=== PATIENT | male | born 1965 | race Caucasian/White ===

== ENCOUNTER 2022-03-20 22:23 | Inpatient (IN) | payer BC, SELFPAY ==
--- NOTE | ~2022-03-20 | XR_ITS ---
XR chest 1V portable DATE: 03/21/2022 13:49 INDICATION: Leukocytopenia TECHNIQUE: Portable AP chest on 03/21/2022 at 1346 hours COMPARISON: None FINDINGS: Normal heart size. No hilar or mediastinal enlargement. Bibasilar infiltrate or atelectasis, left greater than right. No pleural effusion or pulmonary vascul ar congestion or pneumothorax. Osteopenia. Degenerative spurring of the thoracic spine. IMPRESSION: Mild bibasilar infiltrate and/or atelectasis Reviewed, dictated and finalized at location A.
--- NOTE | ~2022-03-20 | XR_ITS ---
XR chest 1V portable DATE: 03/23/2022 10:32 INDICATION: Leukocytopenia. Infiltrate. TECHNIQUE: Portable upright AP chest on 03/23/2022 1027 hours COMPARISON: 03/21/2022 portable AP chest FINDINGS: There are patchy bilateral mid and particularly lower lung infiltrates and/atelectasis. The re is mild elevation of the right diaphragm. Heart size appears within normal range. There is mild pulmonary vascular congestion and redistribution. There is minimal if any pleural effusion. No pneumothorax. IMPRESSION: Bilateral mid and particularly lower lung zone infiltrates and/atelectasis, increased sin ce 03/21/2022 Mild congestive changes Reviewed, dictated and finalized at location A. IMPRESSION: Bilateral mid and particularly lower lung zone infiltrates and/atel ectasis, increased since 03/21/2022 Mild congestive changes
--- NOTE | ~2022-03-20 | CT_ITS ---
EXAMINATION: CT abdomen pelvis wo con DATE: 03/21/2022 10:32 INDICATION: Cirrhosis TECHNIQUE: Computed tomography (CT) of the abdomen and pelvis was performed without intravenous contr ast. Automated exposure control and iterative reconstruction technique were employed. Exam dose: 150 6.71 mGy-cm total exam DLP. COMPARISON: None. FINDINGS: There is minimal discoid atelectasis or scarring primarily involving the anterior basilar s egments of the lower lobes. No infiltrate or consolidation at the lung bases. Normal heart size. No pericardial or pleural effusion. Small sliding hiatal hernia. There is splenomegaly, spleen measuring up to 17 cm length. There is surface nodularity of the liver, consistent with cirrhosis. Varices are noted. Due to Omnipaque shorted, intravenous contrast material was not utilized. Within the limits of noncon trast examination no apparent space-occupying mass lesion of the liver, spleen, pancreas, adrenal gla nds or kidneys is noted. No urinary tract calculus or hydroureteronephrosis. Normal caliber of the abdominal aorta. No abdominal aortic aneurysm. No intraperitoneal or retroperit prince or pelvic mass lesion or adenopathy or ascites. Normal appendix. No bowel obstruction, bowel wall thickening, pneumatosis. Small fat-containing inguinal hernias, left greater than right. Small fat-containing umbilical hernia. Diffuse idiopathic skeletal hyperostosis of the thoracic spine. No suspicious osteolytic or osteoblas tic lesions are noted. IMPRESSION: Cirrhosis, splenomegaly, varices Small sliding hiatal hernia Reviewed, dictated and finalized at Location A. Reviewed, dictated and finalized at location A.
--- NOTE | ~2022-03-20 | US_ITS ---
US abdomen limited DATE: 03/22/2022 08:04 INDICATION: Elevated liver enzymes TECHNIQUE: Real-time imaging of liver, pancreas, gallbladder areas COMPARISON: 03/21/2022 CT abdomen pelvis FINDINGS: Surface nodularity of the liver suggests cirrhosis. No hepatic or pancreatic space-occupyin g mass lesion is evident. Normal hepatopedal portal venous flow direction. No gallstones or gallbladder wall thickening is evident. Negative sonographic Galan's sign. No evide nce of bile duct dilatation. IMPRESSION: Cirrhosis Reviewed, dictated and finalized at Location [facility]. Reviewed, dictated and finalized at location A. IMPRESSION: Cirrhosis
[2022-03-20 22:34] VITALS: BP 113/56; PULSE 107; RESP 18; TEMP 37.2; O2SAT 98
[2022-03-20 23:22] LABS: Basophils Absolute Auto 0.1 K/mm3 (0.0-0.1); Eosinophils Percent Auto 0.6 % (0-4.4); Hematocrit 30.5 % (42.0-52.0); Hemoglobin 9.8 g/dL (14.0-18.0); Immature Granulocyte Absolute 0.02 K/mm3 (0.00-0.031); Immature Granulocyte Percent A 0.3 % (0-0.5); Lymphocytes Absolute Auto 0.96 K/mm3 (0.9-3.2); Lymphocytes Percent Auto 13.8 % (18.3-44.2); Mean Corpuscular HGB Conc 32.1 g/dl (32-36); Mean Corpuscular Hemoglobin 30.3 pg (26-34); Mean Corpuscular Volume 94.4 fl (80-100); Mean Platelet Volume 10.7 fl (7.4-10.4); Monocytes Absolute Auto 0.8 K/mm3 (0.1-0.6); Monocytes Percent Auto 10.8 % (2.6-8.5); Neutrophils Absolute Auto 5.1 K/mm3 (1.3-6.7); Neutrophils Percent Auto 73.5 % (45.5-73.1); Platelet Count Result 196 k/mm3 (150-375); Red Blood Count 3.23 M/mm3 (4.6-6.20); Red Cell Distribution Width 14.8 % (11.5-14.5); White Blood Count 6.9 K/mm3 (4.5-10.0)
[2022-03-20 23:24] LABS: Alanine Aminotransferase 34 U/L (6-50); Albumin Level 3.5 g/dL (3.5-5.1); Alkaline Phosphatase 147 U/L (38-126); Anion Gap 7 mmol/L (8-16); Aspartate Amino Transferase 58 U/L (17-59); Bilirubin,Total 2.8 mg/dL (0.2-1.3); Blood Urea Nitrogen 27 mg/dL (9-20); Calcium 8.4 mg/dL (8.4-10.2); Carbon Dioxide 23 mmol/L (22-30); Chloride 107 mmol/L (98-107); Estimated CRCL calculation 167 ml/min; Estimated Glomerular Filt Rate > 60; Glucose 300 mg/dL (65-110); Potassium 3.7 mmol/L (3.4-5.0); Sodium 137 mmol/L (137-145)
[2022-03-20 23:26] LABS: INR 1.3
[2022-03-20 23:27] LABS: Partial Thromboplastin Time 32.8 SECONDS (22.3-36.8)
[2022-03-20 23:56] VITALS: BP 129/64; PULSE 97
[2022-03-20 23:58] VITALS: BP 105/50; PULSE 105
[2022-03-20 23:59] VITALS: BP 88/45; PULSE 110
[2022-03-21] VITALS (22 sets, daily range): BP systolic 116–161; BP diastolic 46–78; PULSE 90–105; RESP 12–25; TEMP 37–39; O2SAT 93–100; BMI 31.4
[2022-03-21] MEDS: PANTOPRAZOLE SODIUM IV 40 MG VIAL 80 MG IV PUSH (00:03)
[2022-03-21] MEDS: SODIUM CHLORIDE 0.9% IV 1,000 ML 999 ML IV CONT ×2 (00:10→00:43)
--- NOTE | 2022-03-21 00:38 | ED.GIBLEED ---
HPI - GI Bleed General Chief complaint: GI Bleed Stated complaint: vomiting black edward and black tarry stools Time Seen by Provider: 03/20/22 22:58 History of Present Illness HPI Narrative: Patient is a 57-year-old male who presents ER with concerns for GI bleed. Reports he has been vomiting black and having black diarrhea for 3 days. No history of GI bleed. Takes omeprazole 20 mg at home. He reports he takes ibuprofen 600 mg daily for a year for headaches. He is felt progressively more weak and is getting dizzy with going from sitting to standing. No loss of consciousness. He is on no blood thinners. Related Data Allergies Allergy/AdvReac Type Severity Reaction Status Date / Time No Known Allergies Allergy Verified 03/20/22 22:24 Review of Systems Review of Systems: All systems reviewed & are unremarkable except as noted in HPI and below Constitutional: Constitutional: Denies chills, Denies fatigue and Reports weakness Cardiovascular: Cardiovascular: Denies chest pain, Denies rapid heart rate and Denies radiating jaw, neck or arm pain Respiratory: Respiratory: Denies cough and Denies dyspnea Gastrointestinal: Gastrointestinal: Denies abdominal pain, Reports nausea and Reports vomiting Comments: rectal bleeding PMFSH Past Medical History Medical History (Updated 03/21/22 @ 01:19 by Frankie Mitchell MD) Type 2 diabetes mellitus Surgical History Surgical History (Updated 03/21/22 @ 01:16 by Frankie Mitchell MD) No pertinent past surgical history Social History Social History (Updated 03/21/22 @ 01:16 by Frankie Mitchell MD) Smoking status: Never smoker Exam Narrative: GENERAL: Well-appearing, well-nourished, and in no acute distress. HEAD: Normocephalic, atraumatic. EYES: PERRL and EOMI. CHEST: Clear to auscultation. No respiratory distress. HEART: Regular rate and rhythm. Normal peripheral pulses. ABDOMEN: Soft, nontender, nondistended, normal active bowel sounds. Rectal with dark black stool that was is briskly heme positive on guaiac. EXTREMITIES: Normal range of motion. No edema. SKIN: Warm, dry, no rash. NEURO: Alert and oriented x3. PSYCH: Normal mood and affect. Course Course Emergency Course: Admit to hospitalist service. Patient on Protonix drip. Receiving 2 L IV fluid given orthostasis. Dr. Reid with GI consulted and will see in the morning. Keep NPO. Vital Signs Vital signs: Vital Signs Temperature 98.9 F 03/20/22 22:34 Pulse Rate 107 H 03/20/22 22:34 Respiratory Rate 18 03/20/22 22:34 Blood Pressure 113/56 L 03/20/22 22:34 Pulse Oximetry 98 03/20/22 22:34 Oxygen Delivery Room Air 03/20/22 22:34 Temperature 98.9 F 03/20/22 22:34 Pulse Rate 98 03/21/22 00:43 Respiratory Rate 20 03/21/22 00:43 Blood Pressure 144/67 H 03/21/22 00:43 Pulse Oximetry 97 03/21/22 00:43 Oxygen Delivery Room Air 03/20/22 22:34 MDM - GI Bleed Lab Data Result diagrams: 03/20/22 23:08 03/20/22 23:08 Labs: Lab Results 03/20/22 03/20/22 03/20/22 Range/Units 23:08 23:08 23:08 WBC 6.9 (4.5-10.0) K/mm3 RBC 3.23 L (4.6-6.20) M/mm3 Hgb 9.8 L (14.0-18.0) g/dL Hct 30.5 L (42.0-52.0) % MCV 94.4 (80-100) fl MCH 30.3 (26-34) pg MCHC 32.1 (32-36) g/dl RDW 14.8 H (11.5-14.5) % Plt Count 196 (150-375) k/mm3 MPV 10.7 H (7.4-10.4) fl Immature Gran % (Auto) 0.3 (0-0.5) % Neut % (Auto) 73.5 H (45.5-73.1) % Lymph % (Auto) 13.8 L (18.3-44.2) % [place] % (Auto) 10.8 H (2.6-8.5) % Eos % (Auto) 0.6 (0-4.4) % Baso % (Auto) 1.0 (0.2-1.2) % Lymph # (Auto) 0.96 (0.9-3.2) K/mm3 [place] # (Auto) 0.8 H (0.1-0.6) K/mm3 Eos # (Auto) 0.0 (0-0.3) K/mm3 Baso # (Auto) 0.1 (0.0-0.1) K/mm3 Abs Immat Gran (auto) 0.02 (0.00-0.031) K/mm3 Absolute Neuts (auto) 5.1 (1.3-6.7) K/mm3 Absolute Nucleated RBC 0.0 (0.0-0.012) K/mm3 Nuclea
--- NOTE | 2022-03-21 01:22 | PM.IMHP ---
H&P: HPI History of Present Illness Date/Time: 03/21/22 01:22 Chief Complaint: Coffee-ground emesis with melena Narrative: 57-year-old male with past medical history significant for diabetes visiting family in [place] from [place] is presenting with a 2-3 day history of coffee-ground emesis and melena. He denies any history of GI bleeds and does admit to taking omeprazole daily. He also has been taking ibuprofen 600 mg daily for headaches for the last years. Denies chest pain or shortness of breath. He does admit to some nausea with black emesis and tarry stools. Denies abdominal pain. No fevers or chills. States he has been feeling more weak and lightheaded when he tries to stand. Hemoglobin was noted to be 9.8 in the ER, Repeat hemoglobin a few hours later dropped from 9.8 down to 8.3. Kidney function was normal with a GFR greater than 60 and a creatinine of 0.6. He was also noted to have hyperglycemia with a glucose of 300, hyperbilirubinemia with a bilirubin of 2.8. Elevated alk-phos at 1:47 a.m.. No transaminitis noted. GI was consulted. Patient was placed on a Protonix drip with IV fluid along with antiemetics as needed. Review of Systems Review of Systems: Twelve point review of systems was reviewed and is negative except as noted in the HPI [facility] Past Medical History Medical History (Updated 03/21/22 @ 04:46 by Mayra Maddox DO) Type 2 diabetes mellitus Surgical History Surgical History No pertinent past surgical history Family History Family History Father Hypertension Mother Breast cancer Social History Social History Smoking status: Never smoker Second hand tobacco smoke exposure: No Alcohol intake: current Drinks per week: 50 Alcohol use details: 6-7 vodka drinks nightly for 10+ years Substance use: never Substance use type: does not use Gender identity (if verbalized by the patient): Male Spiritual care concerns: No Agree to blood products: Yes Meds Home Medications and Allergies Home Medications Medication Instructions Recorded Confirmed Type escitalopram oxalate 20 mg tablet 20 tablet PO DAILY 03/21/22 03/21/22 History glipizide 2.5 mg tablet, extended 2.5 tablet PO DAILY 03/21/22 03/21/22 History release 24 hr levothyroxine 50 mcg tablet 50 tablet PO DAILY 03/21/22 03/21/22 History omeprazole 20 mg capsule,delayed 20 mg PO DAILY 03/21/22 03/21/22 History release pravastatin 10 mg tablet 10 tablet PO DAILY 03/21/22 03/21/22 History Allergies Allergy/AdvReac Type Severity Reaction Status Date / Time No Known Allergies Allergy Verified 03/20/22 22:24 Vital Signs Vital Signs - 24 hr 03/20/22 22:34 03/20/22 23:56 03/20/22 23:58 Temperature 98.9 F Pulse Rate 107 H 97 105 H Respiratory Rate 18 Blood Pressure 113/56 L 129/64 105/50 L Pulse Oximetry 98 Oxygen Delivery Room Air 03/20/22 23:59 03/21/22 00:43 Temperature Pulse Rate 110 H 98 Respiratory Rate 20 Blood Pressure 88/45 L 144/67 H Pulse Oximetry 97 Oxygen Delivery Exam Narrative: General: Patient resting comfortably in bed, no acute distress HEENT: Atraumatic, normocephalic, mucous membranes moist CV: Regular rate and rhythm, S1, S2, no murmurs rubs or gallops noted Lungs: Clear to auscultation bilaterally, no rales or crackles noted, no wheezes, good air entry Abdomen: Soft, nontender, nondistended Extremities: Normal to inspection, no edema noted Skin: No rashes noted, no lesions or wounds seen Psych: Euthymic, normal affect Neuro: Cranial nerves 2-12 grossly intact, strength 5/5 upper and lower extremities noted H&P: Results Labs Labs: Short CBC 03/20/22 Range/Units 23:08 WBC 6.9 (4.5-10.0) K/mm3 Hgb 9.8 L (14.0-18.0) g/dL Hct 30.5 L (42.0-52.0
[2022-03-21 02:36] LABS: Hematocrit 26.3 % (42.0-52.0); Hemoglobin 8.3 g/dL (14.0-18.0)
--- NOTE | 2022-03-21 02:54 | ADMGEN ---
This patient, Nabeel Elias, was admitted to IMU Room 213-01. Patient/family oriented to hospital policies and general routines including ID bracelet, bed and alarms, visiting hours, pain management, procedures, bathroom and other care routines, personal items, smoking policy, room service/diet, and visiting hours. Information on how to activate the Rapid Response Team has been discussed. Patient/Family are encouraged to report perceived risks to care and to ask questions if they do not understand what they are told or what they should do.
[2022-03-21] MEDS: SODIUM CHLORIDE 0.9% IV 1,000 ML 125 ML IV CONT (04:19)
[2022-03-21] MEDS: METOCLOPRAMIDE HCL INJ 10 MG/2 ML VIAL IV PUSH (06:42)
[2022-03-21 07:54] LABS: Hematocrit 24.8 % (42.0-52.0); Hemoglobin 7.8 g/dL (14.0-18.0)
--- NOTE | 2022-03-21 08:31 | WPDGICN ---
GI Consult Note Consult date/time: 03/21/22 08:31 Reason for consult: Reason for consultation GI bleeding. HPI: Nabeel Elias is a 57 year old male seen in consultation at the request of the hospitalist. The patient was examined the chart was reviewed. Impression: Coffee-ground emesis and melena. Most likely due to underlying peptic ulcer disease. Patient does have a history of reflux disease on omeprazole. Acute blood loss anemia. Alcohol abuse. PMH: HLD, DM, obesity. Recommendation: PPI. Avoid NSAIDs. Transfuse to keep hemoglobin greater than 7/21. H&H every 6 hours. EGD. Thiamine, folic acid, and MVI. Observe for DTs. Alcohol abstention. History: This very pleasant gentleman with the above past medical history presented to the ED with 3 days of melena. He also reported coffee-ground emesis. He denied any fresh hematochezia or fresh hematemesis. He does have a history of indigestion and heartburn and takes omeprazole daily to control his heartburn. He had been taken NSAID once a day for the last several years. The patient denies any dysphagia, odynophagia, constipation, diarrhea, fever, chills, or night sweats. The patient does have some abdominal cramping on and off. He is presently feeling better. Patient has never had an EGD in the past. He has no documented history of peptic ulcer disease in the past. The patient did report hematochezia about 1 year ago. This consisted of bright red blood per rectum. Bleeding ceased at that time. He has had a previous colonoscopy about 5 years ago. The colonoscopy was normal at that time. Patient does admit to drinking 5-7 drinks per day. He has denies any seizures or withdrawal symptoms. Past surgical history: Herniorrhaphy and colonoscopy. Social history: Drinks 5-7 drinks per day. Denies illicit drug use or smoking. Family medical history: Mother bone cancer and father is healthy. No colon cancer or colitis in the family. General: very pleasant patient in no acute distress. HEENT: Head was normocephalic sclerae is clear mouth without masses neck was supple. Heart: Rate rhythm regular without S3 or S4. Lungs: CTA. Abdomen: Soft with no guarding or rigidity. Bowel sounds were active. Neurologic: Cranial nerves 2 through 12 intact. No focal defects. No clonus. Musculoskeletal system: Revealed no joint tenderness or swelling no muscle atrophy. Extremities: Reveal no significant edema. Skin: Warm and dry with normal turgor. Mental status: intact. Patient is alert and oriented. The risks, complications and alternatives to EGD were explained in detail the patient. These include, but are not limited to, hemorrhage, perforation, infection, blood transfusion, surgery, and risks of anesthesia. The patient understands and assumes all risks. All questions were answered with understanding. Review of Systems Review of Systems: Fourteen point review systems unremarkable except for that mentioned above. [facility] Past Medical History Medical History (Updated 03/21/22 @ 08:31 by Mynor Reid DO) Type 2 diabetes mellitus Surgical History Surgical History No pertinent past surgical history Family History Family History Father Hypertension Mother Breast cancer Social History Social History Smoking status: Never smoker Second hand tobacco smoke exposure: No Alcohol intake: current Drinks per week: 50 Alcohol use details: 6-7 vodka drinks nightly for 10+ years Substance use: never Substance use type: does not use Gender identity (if verbalized by the patient): Male Spiritual care concerns: No Agree to blood products: Yes Meds Home Medications and Allergies Home Medications Medication Instructions Recorded Confirmed Type es
--- NOTE | 2022-03-21 08:35 | WPDANESEPPF ---
Anes - Initial Pre Proc Eval Procedure: Operation Date: 03/21/22 09:00 Proposed Procedures p Esophagogastroduodenoscopy/Stent Removal - Mynor TereNini Reid DO Date/Time: 03/21/22 08:35 Surgeon: Mayra Maddox DO Pre Op Diagnosis: upper gi bleed Patient Data Age: 57 Gender: M Height: 1.91 m Weight: 113.9 kg Last Vital Signs Temp 37.2 C 03/21/22 08:00 Pulse 99 03/21/22 08:00 Resp 22 H 03/21/22 08:00 BP 137/60 03/21/22 08:00 Pulse Ox 95 03/21/22 08:00 O2 Del Method Room Air 03/21/22 03:48 Allergies Allergy/AdvReac Type Severity Reaction Status Date / Time No Known Allergies Allergy Verified 03/21/22 08:48 Home Medications Medication Instructions Recorded Confirmed Type escitalopram oxalate 20 mg tablet 20 tablet PO DAILY 03/21/22 03/21/22 History glipizide 2.5 mg tablet, extended 2.5 tablet PO DAILY 03/21/22 03/21/22 History release 24 hr levothyroxine 50 mcg tablet 50 tablet PO DAILY 03/21/22 03/21/22 History omeprazole 20 mg capsule,delayed 20 mg PO DAILY 03/21/22 03/21/22 History release pravastatin 10 mg tablet 10 tablet PO DAILY 03/21/22 03/21/22 History Laboratory Tests 03/20/22 03/20/22 03/20/22 23:08 23:08 23:08 WBC 6.9 K/mm3 K/mm3 (4.5-10.0) RBC 3.23 M/mm3 L M/mm3 (4.6-6.20) Hgb 9.8 g/dL L g/dL (14.0-18.0) Hct 30.5 % L % (42.0-52.0) MCV 94.4 fl fl (80-100) MCH 30.3 pg pg (26-34) MCHC 32.1 g/dl g/dl (32-36) RDW 14.8 % H % (11.5-14.5) Plt Count 196 k/mm3 k/mm3 (150-375) MPV 10.7 fl H fl (7.4-10.4) Immature Gran % (Auto) 0.3 % % (0-0.5) Neut % (Auto) 73.5 % H % (45.5-73.1) Lymph % (Auto) 13.8 % L % (18.3-44.2) [place] % (Auto) 10.8 % H % (2.6-8.5) Eos % (Auto) 0.6 % % (0-4.4) Baso % (Auto) 1.0 % % (0.2-1.2) Lymph # (Auto) 0.96 K/mm3 K/mm3 (0.9-3.2) [place] # (Auto) 0.8 K/mm3 H K/mm3 (0.1-0.6) Eos # (Auto) 0.0 K/mm3 K/mm3 (0-0.3) Baso # (Auto) 0.1 K/mm3 K/mm3 (0.0-0.1) Abs Immat Gran (auto) 0.02 K/mm3 K/mm3 (0.00-0.031) Absolute Neuts (auto) 5.1 K/mm3 K/mm3 (1.3-6.7) Absolute Nucleated RBC 0.0 K/mm3 K/mm3 (0.0-0.012) Nucleated RBC % 0.0 % % (0.0-0.2) PT 16.0 Seconds H Seconds (11.1-14.7) INR 1.3 APTT 32.8 SECONDS SECONDS (22.3-36.8) Sodium 137 mmol/L mmol/L (137-145) Potassium 3.7 mmol/L mmol/L (3.4-5.0) Chloride 107 mmol/L mmol/L (98-107) Carbon Dioxide 23 mmol/L mmol/L (22-30) Anion Gap 7 mmol/L L mmol/L (8-16) BUN 27 mg/dL H mg/dL (9-20) Creatinine 0.60 mg/dL L mg/dL (0.7-1.3) Estim Creat Clear Calc 167 ml/min ml/min Estimated GFR > 60 (59 - ) Glucose 300 mg/dL H mg/dL (65-110) Calcium 8.4 mg/dL mg/dL (8.4-10.2) Total Bilirubin 2.8 mg/dL H mg/dL (0.2-1.3) AST 58 U/L U/L (17-59) ALT 34 U/L U/L (6-50) Alkaline Phosphatase 147 U/L H U/L (38-126) Total Protein 6.0 g/dL L g/dL (6.3-8.2) Albumin 3.5 g/dL g/dL (3.5-5.1) Blood Type Antibody Screen 03/20/22 03/21/22 03/21/22 23:08 02:29 07:28 WBC RBC Hgb 8.3 g/dL L g/dL 7.8 g/dL L g/dL (14.0-18.0) (14.0-18.0) Hct 26.3 % L % 24.8 % L % (42.0-52.0) (42.0-52.0) MCV MCH MCHC RDW Plt Count MPV Immature Gran % (Auto) Neut % (Auto) Lymph % (Auto) [place] % (Auto) Eos % (Auto) Baso % (Auto) Lymph # (Auto) [place] # (Auto) Eos # (Auto) Baso # (Auto)
[2022-03-21 08:50] LABS: Glucose Point of Care 224 mg/dl (65-105)
[2022-03-21] MEDS: LACTATED RINGERS 1,000 ML 150 ML IV CONT (08:50)
--- NOTE | 2022-03-21 10:00 | PM.IMPN ---
Progress Note: A&P Assessment and Plan (1) Esophageal varices determined by endoscopy: Code(s): I85.00 - Esophageal varices without bleeding Status: Acute Assessment and Plan: EGD was performed 5 varices banded GI on board Trend hemoglobin hematocrit See below (2) Acute upper GI bleeding: Code(s): K92.2 - Gastrointestinal hemorrhage, unspecified Status: Acute Assessment and Plan: Complaints of coffee ground emesis and melena H/H trending down, currently 7.8/24.8 GI consulted EGD performed with 5 bandings of varices Octreotide and protonix drip, could probably be changed to protonix 40mg BID Trend H/H Q6hr Transfuse if H/H <7 (3) Acute blood loss anemia: Code(s): D62 - Acute posthemorrhagic anemia Status: Acute Assessment and Plan: H/H trending down currently 7.8/24.8 Secondary to esophageal varices Continue trend H&H Anemia labs ordered Supplement if indicated Adjust therapy as indicated Transfuse if hemoglobin less than 7 (4) Alcohol abuse: Code(s): F10.10 - Alcohol abuse, uncomplicated Status: Acute Assessment and Plan: [facility] protocol Ativan p.r.n. on board Librium scheduled Trend for DTs Adjust therapy as indicated (5) Type 2 diabetes mellitus: Code(s): E11.9 - Type 2 diabetes mellitus without complications Status: Acute Assessment and Plan: Glucose 300 Accu-Cheks Q6H sliding scale insulin Hold oral medications at this time Trend glucose Adjust therapy as indiciated (6) Hyperbilirubinemia: Code(s): E80.6 - Other disorders of bilirubin metabolism Status: Acute Assessment and Plan: Bili 2.8 Continue to trend Probabaly related to GI bleed GI on board Time Spent With Patient Time with patient: 25 - 35 minutes Subjective Date/time seen: 03/21/22 10:00 Interval history: 03/21/22 1000 Patient was lying in bed and just got back to the GI lab. Patient denies any complaints including chest pain, shortness of breath, nausea, vomiting, diarrhea, constipation, weakness or fatigue. Patient did report having episodes of melena this morning. He seems to be doing okay at this time. H/H is continuing to trend down. Vital signs exhibit a fever at this time, blood cultures have been ordered as well. 03/21/22? 01:22 ?57-year-old male with past medical history significant for diabetes visiting family in [place] from [place] is presenting with a 2-3 day history of coffee-ground emesis and melena.? He denies any history of GI bleeds and does admit to taking omeprazole daily.? He also has been taking ibuprofen 600 mg daily for headaches for the last years.? Denies chest pain or shortness of breath.? He does admit to some nausea with black emesis and tarry stools.? Denies abdominal pain.? No fevers or chills.? States he has been feeling more weak and lightheaded when he tries to stand. Hemoglobin was noted to be 9.8 in the ER, ? Repeat hemoglobin a few hours later dropped from 9.8 down to 8.3. ? Kidney function was normal with a GFR greater than 60 and a creatinine of 0.6. ? He was also noted to have hyperglycemia with a glucose of 300, hyperbilirubinemia with a bilirubin of 2.8.? Elevated alk-phos at 1:47 a.m..? No transaminitis noted. ? GI was consulted.? Patient was placed on a Protonix drip with IV fluid along with antiemetics as needed. Review of Systems Review of Systems: All systems reviewed & are unremarkable except as noted in HPI and below Exam Const: General: cooperative, healthy appearing, no acute distress, well developed, alert and awake Nutritional Appearance: well nourished Orientation/consciousness: patient oriented x3 Limitations: no limitations HENMT: Head: normal to inspection Ears: hearing grossly normal bilaterally General nose exam: Normal external nose present Mouth: Yes Normal ora
--- NOTE | 2022-03-21 10:00 | P.PNIM_ITS ---
Progress Note: A&P Assessment and Plan (1) Esophageal varices determined by endoscopy: Code(s): I85.00 - Esophageal varices without bleeding Status: Acute Assessment and Plan: * EGD was performed 5 varices banded * GI on board * Trend hemoglobin hematocrit * See below (2) Acute upper GI bleeding: Code(s): K92.2 - Gastrointestinal hemorrhage, unspecified Status: Acute Assessment and Plan: * Complaints of coffee ground emesis and melena * H/H trending down, currently 7.8/24.8 * GI consulted * EGD performed with 5 bandings of varices * Octreotide and protonix drip, could probably be changed to protonix 40mg BID * Trend H/H Q6hr * Transfuse if H/H <7 (3) Acute blood loss anemia: Code(s): D62 - Acute posthemorrhagic anemia Status: Acute Assessment and Plan: * H/H trending down currently 7.8/24.8 * Secondary to esophageal varices * Continue trend H&H * Anemia labs ordered * Supplement if indicated * Adjust therapy as indicated * Transfuse if hemoglobin less than 7 (4) Alcohol abuse: Code(s): F10.10 - Alcohol abuse, uncomplicated Status: Acute Assessment and Plan: * CIWA protocol * Ativan p.r.n. on board * Librium scheduled * Trend for DTs * Adjust therapy as indicated (5) Type 2 diabetes mellitus: Code(s): E11.9 - Type 2 diabetes mellitus without complications Status: Acute Assessment and Plan: * Glucose 300 * Accu-Cheks Q6H * sliding scale insulin * Hold oral medications at this time * Trend glucose * Adjust therapy as indiciated (6) Hyperbilirubinemia: Code(s): E80.6 - Other disorders of bilirubin metabolism Status: Acute Assessment and Plan: * Bili 2.8 * Continue to trend * Probabaly related to GI bleed * GI on board Time Spent With Patient Time with patient: 25 - 35 minutes Subjective Date/time seen: 03/21/22 10:00 Interval history: 03/21/22 1000 Patient was lying in bed and just got back to the GI lab. Patient denies any complaints including chest pain, shortness of breath, nausea, vomiting, diarrhea, constipation, weakness or fatigue. Patient did report having episodes of melena this morning. He seems to be doing okay at this time. H/H is continuing to trend down. Vital signs exhibit a fever at this time, blood cultures have been ordered as well. 03/21/22? 01:22 ?57-year-old male with past medical history significant for diabetes visiting family in [place] from [place] is presenting with a 2-3 day history of coffee-ground emesis and melena.? He denies any history of GI bleeds and does admit to taking omeprazole daily.? He also has been taking ibuprofen 600 mg daily for headaches for the last years.? Denies chest pain or shortness of breath.? He does admit to some nausea with black emesis and tarry stools.? Denies abdominal pain.? No fevers or chills.? States he has been feeling more weak and lightheaded when he tries to stand. Hemoglobin was noted to be 9.8 in the ER, ? Repeat hemoglobin a few hours later dropped from 9.8 down to 8.3. ? Kidney function was normal with a GFR greater than 60 and a creatinine of 0.6. ? He was also noted to have hyperglycemia with a glucose of 300, hyperbilirubinemia with a bilirubin of 2.8.? Elevated alk-phos at 1:47 a.m..? No transaminitis noted. ? GI was consulted.? Patient was placed on a Protonix dri
[2022-03-21 10:05] LABS: Glucose Point of Care 218 mg/dl (65-105)
[2022-03-21 11:36] LABS: Hematocrit 24.8 % (42.0-52.0); Hemoglobin 7.8 g/dL (14.0-18.0); Mean Corpuscular HGB Conc 31.5 g/dl (32-36); Mean Corpuscular Hemoglobin 30.6 pg (26-34); Mean Corpuscular Volume 97.3 fl (80-100); Mean Platelet Volume 10.5 fl (7.4-10.4); Red Blood Count 2.55 M/mm3 (4.6-6.20); Red Cell Distribution Width 15.2 % (11.5-14.5)
[2022-03-21 11:41] LABS: Ammonia < 9 umol/L (9-30)
[2022-03-21 11:44] LABS: Alanine Aminotransferase 64 U/L (6-50); Albumin Level 2.9 g/dL (3.5-5.1); Alkaline Phosphatase 127 U/L (38-126); Anion Gap 4 mmol/L (8-16); Aspartate Amino Transferase 185 U/L (17-59); Bilirubin,Total 1.7 mg/dL (0.2-1.3); Blood Urea Nitrogen 19 mg/dL (9-20); Calcium 7.9 mg/dL (8.4-10.2); Carbon Dioxide 26 mmol/L (22-30); Chloride 110 mmol/L (98-107); Estimated CRCL calculation 140 ml/min; Estimated Glomerular Filt Rate > 60; Glucose 239 mg/dL (65-110); Magnesium 1.7 mg/dL (1.6-2.3); Potassium 3.6 mmol/L (3.4-5.0); Sodium 140 mmol/L (137-145)
[2022-03-21 11:46] LABS: Cholesterol 106 mg/dL (0-200); HDL Direct 33 mg/dL; Triglycerides 123 mg/dL (<150)
[2022-03-21 11:47] LABS: INR 1.4; Prothrombin Time 16.7 Seconds (11.1-14.7)
[2022-03-21 11:51] LABS: Platelet Count Result 82 k/mm3 (150-375); White Blood Count 0.9 K/mm3 (4.5-10.0)
[2022-03-21] MEDS: cefTRIAXone 2 GM in SODIUM CHLORIDE 0.9% IV 100 ML 200 ML IVPB (11:53)
[2022-03-21 11:54] LABS: Iron 44 ug/dL (49-181)
[2022-03-21] MEDS: THERAPEUTIC MULTIVITAMINS/MINERALS TAB (*BKC) 1 TABLET PO (11:54)
[2022-03-21] MEDS: SUCRALFATE SUSP 100 MG/ML 10 ML UDC 1000 MG PO ×3 (11:54→20:34)
[2022-03-21] MEDS: THIAMINE HCL 100 MG TABLET PO (11:54)
[2022-03-21] MEDS: FOLIC ACID 1 MG TABLET PO (11:54)
[2022-03-21 12:03] LABS: Percent Iron Saturation 12 % (20-50)
[2022-03-21 12:04] LABS: LDL Cholesterol Direct 36 mg/dL
[2022-03-21 12:07] LABS: T4 Thyroxine 5.24 ug/dL (5.53-11.0)
[2022-03-21 12:15] LABS: Hepatitis B Surface Antigen Negative (Negative)
[2022-03-21 12:32] LABS: Hepatitis B Surface Anti Res Negative
[2022-03-21 12:41] LABS: Glucose Point of Care 304 mg/dl (65-105)
[2022-03-21 12:56] LABS: Folic Acid 10.1 ng/mL (2.76->20)
[2022-03-21 13:08] LABS: Hematocrit 24.2 % (42.0-52.0); Hemoglobin 7.6 g/dL (14.0-18.0); Immature Platelet Fraction Pct 3.6 % (0.9-11.2); Mean Corpuscular HGB Conc 31.4 g/dl (32-36); Mean Corpuscular Hemoglobin 30.5 pg (26-34); Mean Corpuscular Volume 97.2 fl (80-100); Mean Platelet Volume 10.5 fl (7.4-10.4); Platelet Count Result 80 k/mm3 (150-375); Red Blood Count 2.49 M/mm3 (4.6-6.20); Red Cell Distribution Width 15.2 % (11.5-14.5)
[2022-03-21] MEDS: INSULIN ASPART (*BKC) 100 UNITS/ML SUB-Q ×2 (13:18→18:38)
[2022-03-21 13:26] LABS: White Blood Count 1.1 K/mm3 (4.5-10.0)
[2022-03-21 13:43] LABS: Lymphocytes Absolute Auto 0.24 K/mm3 (0.9-3.2); Lymphocytes Percent Auto 22.9 % (18.3-44.2); Monocytes Absolute Auto 0.4 K/mm3 (0.1-0.6); Monocytes Percent Auto 33.3 % (2.6-8.5); Neutrophils Absolute Auto 0.5 K/mm3 (1.3-6.7); Neutrophils Percent Auto 42.8 % (45.5-73.1)
[2022-03-21 13:57] LABS: Lactic Acid Reflex 2.7 mmol/L (0.7-2.0)
[2022-03-21 14:01] LABS: Base Excess ABG -1.2 mEq/l (+/-2.0); Carboxyhemoglobin 0.3 % THb (0-2.0); Fractional Inspired Oxygen 21 %; HCO3 ABG 22.6 mEq/l (22.0-26.0); Methemoglobin ABG 0.6 %THb (0-1.5); Oxygen Content ABG 10.3 %vol (16.0-22.0); Oxygen Saturation ABG 93.7 % (95.0-100.0); PCO2 ABG 33.9 mmHg (35.0-45.0); PO2 ABG 65.1 mmHg (80.0-100.0); Reduced Hemoglobin 8.1 %THb (0-5.0); pH ABG 7.442 (7.350-7.450)
[2022-03-21 14:02] LABS: Device ROOM AIR; Modified Allen's Test Pass; Site Drawn LEFT RADIAL
[2022-03-21 16:03] LABS: Hepatitis B Surface Antigen Negative (Negative)
[2022-03-21 16:04] LABS: Amphetamine Screen Urine Negative (Negative); Barbiturate Screen Urine Negative (Negative); Benzodiazepines Screen Urine Negative (Negative); Cannabinoid Screen Urine Negative (Negative); Cocaine Screen Urine Negative (Negative); Methadone Screen Urine Negative (Negative); Opiate Screen Urine Negative (Negative); Phencyclidine Screen Urine Negative (Negative)
[2022-03-21 16:09] LABS: HAV RESULT Negative (Negative); Hepatitis B Core IgM Result Negative (Negative)
[2022-03-21 16:15] LABS: HIV 1/2 Ab P24 Ag Result Negative (Negative)
[2022-03-21 16:21] LABS: Hepatitis C Virus Antibody Negative (Negative)
[2022-03-21 16:29] LABS: Glucose Point of Care 213 mg/dl (65-105)
[2022-03-21 16:47] LABS: Reflex Lactic Acid Yes or No Add Lactic
[2022-03-21 17:15] LABS: Lactic Acid 1.8 mmol/L (0.7-2.0)
[2022-03-21 19:28] LABS: Hematocrit 22.2 % (42.0-52.0); Hemoglobin 7.1 g/dL (14.0-18.0)
[2022-03-21 20:10] LABS: Glucose Point of Care 172 mg/dl (65-105)
[2022-03-21] MEDS: PANTOPRAZOLE 40 MG TABLET PO (20:34)
[2022-03-21] MEDS: chlordiazePOXIDE (*CRX) 25 MG CAPSULE PO (23:48)
[2022-03-22] VITALS (25 sets, daily range): BP systolic 116–146; BP diastolic 51–64; PULSE 72–96; RESP 12–20; TEMP 36.7–38.6; O2SAT 94–99
[2022-03-22 05:07] LABS: Hematocrit 22.5 % (42.0-52.0); Immature Platelet Fraction Pct 4.5 % (0.9-11.2); Lymphocytes Absolute Auto 0.54 K/mm3 (0.9-3.2); Lymphocytes Percent Auto 43.9 % (18.3-44.2); Mean Corpuscular HGB Conc 31.1 g/dl (32-36); Mean Corpuscular Hemoglobin 30.7 pg (26-34); Mean Corpuscular Volume 98.7 fl (80-100); Mean Platelet Volume 10.7 fl (7.4-10.4); Monocytes Absolute Auto 0.4 K/mm3 (0.1-0.6); Monocytes Percent Auto 31.7 % (2.6-8.5); Neutrophils Absolute Auto 0.3 K/mm3 (1.3-6.7); Neutrophils Percent Auto 24.4 % (45.5-73.1); Platelet Count Result 66 k/mm3 (150-375); Red Blood Count 2.28 M/mm3 (4.6-6.20); Red Cell Distribution Width 14.9 % (11.5-14.5)
[2022-03-22 05:17] LABS: Alanine Aminotransferase 135 U/L (6-50); Albumin Level 2.5 g/dL (3.5-5.1); Alkaline Phosphatase 120 U/L (38-126); Anion Gap 5 mmol/L (8-16); Aspartate Amino Transferase 439 U/L (17-59); Bilirubin,Total 1.2 mg/dL (0.2-1.3); Blood Urea Nitrogen 13 mg/dL (9-20); Calcium 7.5 mg/dL (8.4-10.2); Carbon Dioxide 23 mmol/L (22-30); Chloride 108 mmol/L (98-107); Estimated CRCL calculation 161 ml/min; Estimated Glomerular Filt Rate > 60; Glucose 166 mg/dL (65-110); Magnesium 1.9 mg/dL (1.6-2.3); Sodium 136 mmol/L (137-145)
[2022-03-22 05:51] LABS: White Blood Count 1.2 K/mm3 (4.5-10.0)
[2022-03-22] MEDS: chlordiazePOXIDE (*CRX) 25 MG CAPSULE PO ×4 (06:00→23:59)
[2022-03-22] MEDS: SUCRALFATE SUSP 100 MG/ML 10 ML UDC 1000 MG PO ×4 (06:00→20:49)
[2022-03-22 07:21] LABS: Lactate Dehydrogenase 893 U/L (313-618)
[2022-03-22 07:54] LABS: Glucose Point of Care 169 mg/dl (65-105)
[2022-03-22] MEDS: SODIUM CHLORIDE 0.9% IV 250 ML 30 ML IV CONT ×2 (08:21→14:38)
[2022-03-22] MEDS: TUBING, BLOOD PLUM PUMP TUBING 1 EACH XX ×2 (08:22→14:39)
[2022-03-22] MEDS: PANTOPRAZOLE 40 MG TABLET PO ×2 (08:26→20:49)
[2022-03-22] MEDS: THIAMINE HCL 100 MG TABLET PO (08:26)
[2022-03-22] MEDS: FOLIC ACID 1 MG TABLET PO (08:26)
[2022-03-22] MEDS: THERAPEUTIC MULTIVITAMINS/MINERALS TAB (*BKC) 1 TABLET PO (08:26)
--- NOTE | 2022-03-22 08:45 | P.PNIM_ITS ---
Progress Note: A&P Assessment and Plan (1) Pancytopenia: Code(s): D61.818 - Other pancytopenia Status: Acute Assessment and Plan: * WBC are 1.2, RBC 2.28, H/H 7.0/22.5, PLT 66, Neut 24.4 * ANC is 1098, indicates mild neutropenia * Consult oncology * Trend labs * Labs in the am (2) Transaminitis: Code(s): R74.01 - Elevation of levels of liver transaminase levels Status: Acute Assessment and Plan: * Maddrey's discriminant function score is 27.9 * AST/ALT 439/135 Trending up * RUQ ultrasound showed cirrhosis, no bile duct dilatation or stone * Hep panel negative * GI consulted (3) Hyperthermia: Code(s): R50.9 - Fever, unspecified Status: Acute Assessment and Plan: * Temps as high as 102.4 * Trending down, currently 100.6 * Blood, urine, sputum cultures ordered and pending * Ceftriaxone on board * Continue to trend temperature * Tylenol on board (4) Esophageal varices determined by endoscopy: Code(s): I85.00 - Esophageal varices without bleeding Status: Acute Assessment and Plan: * EGD was performed 5 varices banded * GI on board * Trend hemoglobin hematocrit * Carafate ordered * DC NSAIDS * ETOH cessations * See below (5) Acute upper GI bleeding: Code(s): K92.2 - Gastrointestinal hemorrhage, unspecified Status: Acute Assessment and Plan: * Complaints of coffee ground emesis and melena * H/H trending down, currently 7.0/22.5 * GI consulted * EGD performed with 5 bandings of varices * Protonix 40mg BID * Trend H/H Q6hr * Transfuse if H/H <7 * Transfuse one unit of PRBC (6) Acute blood loss anemia: Code(s): D62 - Acute posthemorrhagic anemia Status: Acute Assessment and Plan: * H/H trending down currently 7.0/22.5 * Secondary to esophageal varices * Continue trend H&H * Anemia labs iron 44, TIBC 375, % sat 12, Ferritin 35.50, B12 383, Folate 10.1 * Adjust therapy as indicated * Transfuse if hemoglobin less than 7 * Ferrous sulfate added * Transfuse one unit of PRBC (7) Alcohol abuse: Code(s): F10.10 - Alcohol abuse, uncomplicated Status: Acute Assessment and Plan: * CIWA protocol * Ativan p.r.n. on board * Librium scheduled * Trend for DTs * Adjust therapy as indicated (8) Type 2 diabetes mellitus: Code(s): E11.9 - Type 2 diabetes mellitus without complications Status: Acute Assessment and Plan: * Glucose 166 * Accu-Cheks Q6H * sliding scale insulin * Hold oral medications at this time * Trend glucose * Adjust therapy as indiciated (9) Hyperbilirubinemia: Code(s): E80.6 - Other disorders of bilirubin metabolism Status: Acute Assessment and Plan: * Bili 1.2 * Continue to trend * Probably related to GI bleed * GI on board Time Spent With Patient Time with patient: Greater than 35 minutes Subjective Date/time seen: 03/22/22 08:45 Interval history: 03/22/22 0845 Patient looks very lethargic and weak today. He has no complaints. He did state that he does feel very tired and just feels like he can not get enough sleep. He also appears to be very pale. He denies any chest pain, shortness of breath
--- NOTE | 2022-03-22 08:45 | PM.IMPN ---
Progress Note: A&P Assessment and Plan (1) Pancytopenia: Code(s): D61.818 - Other pancytopenia Status: Acute Assessment and Plan: WBC are 1.2, RBC 2.28, H/H 7.0/22.5, PLT 66, Neut 24.4 ANC is 1098, indicates mild neutropenia Consult oncology Trend labs Labs in the am (2) Transaminitis: Code(s): R74.01 - Elevation of levels of liver transaminase levels Status: Acute Assessment and Plan: Maddrey's discriminant function score is 27.9 AST/ALT 439/135 Trending up RUQ ultrasound showed cirrhosis, no bile duct dilatation or stone Hep panel negative GI consulted (3) Hyperthermia: Code(s): R50.9 - Fever, unspecified Status: Acute Assessment and Plan: Temps as high as 102.4 Trending down, currently 100.6 Blood, urine, sputum cultures ordered and pending Ceftriaxone on board Continue to trend temperature Tylenol on board (4) Esophageal varices determined by endoscopy: Code(s): I85.00 - Esophageal varices without bleeding Status: Acute Assessment and Plan: EGD was performed 5 varices banded GI on board Trend hemoglobin hematocrit Carafate ordered DC NSAIDS ETOH cessations See below (5) Acute upper GI bleeding: Code(s): K92.2 - Gastrointestinal hemorrhage, unspecified Status: Acute Assessment and Plan: Complaints of coffee ground emesis and melena H/H trending down, currently 7.0/22.5 GI consulted EGD performed with 5 bandings of varices Protonix 40mg BID Trend H/H Q6hr Transfuse if H/H <7 Transfuse one unit of PRBC (6) Acute blood loss anemia: Code(s): D62 - Acute posthemorrhagic anemia Status: Acute Assessment and Plan: H/H trending down currently 7.0/22.5 Secondary to esophageal varices Continue trend H&H Anemia labs iron 44, TIBC 375, % sat 12, Ferritin 35.50, B12 383, Folate 10.1 Adjust therapy as indicated Transfuse if hemoglobin less than 7 Ferrous sulfate added Transfuse one unit of PRBC (7) Alcohol abuse: Code(s): F10.10 - Alcohol abuse, uncomplicated Status: Acute Assessment and Plan: [facility] protocol Ativan p.r.n. on board Librium scheduled Trend for DTs Adjust therapy as indicated (8) Type 2 diabetes mellitus: Code(s): E11.9 - Type 2 diabetes mellitus without complications Status: Acute Assessment and Plan: Glucose 166 Accu-Cheks Q6H sliding scale insulin Hold oral medications at this time Trend glucose Adjust therapy as indiciated (9) Hyperbilirubinemia: Code(s): E80.6 - Other disorders of bilirubin metabolism Status: Acute Assessment and Plan: Bili 1.2 Continue to trend Probably related to GI bleed GI on board Time Spent With Patient Time with patient: Greater than 35 minutes Subjective Date/time seen: 03/22/22 08:45 Interval history: 03/22/22844 Patient looks very lethargic and weak today. He has no complaints. He did state that he does feel very tired and just feels like he can not get enough sleep. He also appears to be very pale. He denies any chest pain, shortness of breath, nausea, vomiting, diarrhea, constipation, weakness, abdominal pain. Talked to the patient about plan of care including elevated liver enzymes, decreased H&H and further testing that might need to be done. Patient verbalized understanding all questions were answered at this time. Talked to Dr. Couch who stated that we can start Neupogen when the ANC goes below 1000. He also stated that he could potentially have an infection, however, to watch and see. He stated to monitor since it looks as if he is recovering. 03/21/22 1000 Patient was lying in bed and just got back to the GI lab. Patient denies any complaints including chest pain, shortness of breath, nausea, vomiting, diarrhea,
[2022-03-22 08:47] LABS: INR 1.5; Partial Thromboplastin Time 38.4 SECONDS (22.3-36.8); Prothrombin Time 17.2 Seconds (11.1-14.7)
--- NOTE | 2022-03-22 09:51 | WPDGIPROGNO ---
Subjective Date/time seen: 03/22/22 09:51 Patient feeling better. No further bleeding reported. Does have some complaints of painful swallowing. Feels somewhat tired. Vital signs stable. Heart rate rhythm regular. Lungs CTA. Abdomen was soft. Impression: Coffee-ground emesis and melena secondary to esophageal varices and portal hypertensive gastropathy. Cirrhosis/alcoholic hepatitis with complicating factors: Esophageal varices. Pancytopenia secondary to hypersplenism. Portal hypertensive gastropathy. Coagulopathy. Acute blood loss anemia.? Alcohol abuse. PMH:? HLD, DM, obesity. Recommendation: Advance diet as tolerate. Continue PPI. Liver workup in progress. Observe for DTs. Will check ammonia level. Objective Data Vital Signs Vital Signs: Vital Signs - 24 hr 03/21/22 11:53 03/21/22 12:00 03/21/22 13:18 Temperature 38.7 C H 38.8 C H 38.8 C H Pulse Rate 96 Respiratory Rate 22 H Blood Pressure 137/69 Pulse Oximetry 96 Oxygen Delivery 03/21/22 14:02 03/21/22 14:17 03/21/22 16:00 Temperature 38.2 C H 38.2 C H Pulse Rate 90 Respiratory Rate 24 H Blood Pressure 116/57 L Pulse Oximetry 94 95 Oxygen Delivery Room Air 03/21/22 12:00 03/21/22 16:00 03/21/22 10:00 Temperature Pulse Rate 99 Respiratory Rate Blood Pressure Pulse Oximetry Oxygen Delivery Room Air Room Air 03/21/22 12:00 03/21/22 14:00 03/21/22 16:00 Temperature Pulse Rate 100 95 94 Respiratory Rate Blood Pressure Pulse Oximetry Oxygen Delivery 03/21/22 18:00 03/21/22 20:00 03/21/22 20:00 Temperature 37.9 C H Pulse Rate 91 98 101 H Respiratory Rate 22 H Blood Pressure 161/56 H Pulse Oximetry 99 Oxygen Delivery 03/21/22 20:00 03/21/22 21:53 03/21/22 23:27 Temperature 37.7 C H Pulse Rate 94 97 Respiratory Rate 22 H Blood Pressure 145/59 H Pulse Oximetry 100 Oxygen Delivery Room Air 03/22/22 00:00 03/22/22 00:00 03/22/22 01:58 Temperature Pulse Rate 93 96 Respiratory Rate Blood Pressure Pulse Oximetry Oxygen Delivery Room Air 03/22/22 04:00 03/22/22 04:00 03/22/22 04:00 Temperature 37.6 C H Pulse Rate 88 88 Respiratory Rate 20 Blood Pressure 137/61 Pulse Oximetry 99 Oxygen Delivery Room Air 03/22/22 06:00 03/22/22 07:30 03/22/22 08:08 Temperature 37.9 C H 38.2 C H Pulse Rate 84 85 85 Respiratory Rate 16 12 Blood Pressure 116/62 129/55 L Pulse Oximetry 95 94 Oxygen Delivery 03/22/22 08:00 03/22/22 08:24 Temperature 38.1 C H Pulse Rate 82 Respiratory Rate 14 Blood Pressure 117/51 L Pulse Oximetry 97 Oxygen Delivery Room Air Intake/Output Intake/Output: Intake & Output 03/19/22 03/20/22 03/21/22 03/22/22 23:59 23:59 23:59 23:59 Intake Total 4370 0 Output Total 725 450 Balance 3645 -450 Meds/Results Medications: Active Medications Generic Name Dose Route Start Last Admin Trade Name Montyq PRN Reason Stop Dose Admin Acetaminophen 1,000 mg 03/21/22 13:15 Acetaminophen 500 Mg Tablet PO Q6H PRN Mild Pain (1-3) or Fever Chlordiazepoxide HCl 25 mg 03/21/22 12:00 03/22/22 06:00 Chlordiazepoxide (*Crx) 25 Mg Capsule PO 25 mg Q6HR JUSTICE Administration Dextrose 12.5 gm 03/21/22 09:18 Dextrose 50% 25 Gm/50 Ml Syringe IV PUSH PRN PRN Hypoglycemia Protocol Ferrous Sulfate 324 mg 03/22/22 08:00 Ferrous Sulfate 324 Mg Tablet PO BIDWM JUSTICE Folic Acid 1 mg 03/21/22 09:00 03/22/22 08:26 Folic Acid 1 Mg Tablet PO 1 mg DAILY JUSTICE Administration Glucagon 1 mg 03/21/22 09:18 Glucagon For Inj 1 Mg Vial IM PRN PRN Hypoglycemia Protocol Glucose 15 gm 03/21/22 09:18 Glucose Oral Gel 15 Gm Of Glucse In 37.5 Gm Tube PO PRN PRN Hypoglycemia Protocol Dextrose 1,000 mls @ 100 mls/hr 03/21/22 09:18 Dextrose 5% 1,000 Ml
[2022-03-22] MEDS: PHYTONADIONE 5 MG TABLET 10 MG PO (10:37)
[2022-03-22] MEDS: FERROUS SULFATE 324 MG TABLET PO ×2 (10:37→17:45)
[2022-03-22] MEDS: polyethylene glycoL 3350 17 GM POWD.PACK PO (10:38)
[2022-03-22] MEDS: cefTRIAXone 2 GM in SODIUM CHLORIDE 0.9% IV 100 ML 200 ML IVPB (10:38)
[2022-03-22 11:03] LABS: Erythrocyte Sedimentation Rate 67 mm/hr (0-20)
[2022-03-22 12:09] LABS: Basophils Percent Auto 0.7 % (0.2-1.2); Hemoglobin 7.6 g/dL (14.0-18.0); Immature Platelet Fraction Pct 4.8 % (0.9-11.2); Lymphocytes Absolute Auto 0.61 K/mm3 (0.9-3.2); Lymphocytes Percent Auto 41.8 % (18.3-44.2); Mean Corpuscular HGB Conc 31.7 g/dl (32-36); Mean Corpuscular Hemoglobin 30.5 pg (26-34); Mean Corpuscular Volume 96.4 fl (80-100); Mean Platelet Volume 10.5 fl (7.4-10.4); Monocytes Absolute Auto 0.4 K/mm3 (0.1-0.6); Monocytes Percent Auto 25.3 % (2.6-8.5); Neutrophils Absolute Auto 0.5 K/mm3 (1.3-6.7); Neutrophils Percent Auto 32.2 % (45.5-73.1); Platelet Count Result 66 k/mm3 (150-375); Red Blood Count 2.49 M/mm3 (4.6-6.20); Red Cell Distribution Width 15.2 % (11.5-14.5)
[2022-03-22 12:15] LABS: Glucose Point of Care 227 mg/dl (65-105)
[2022-03-22 12:18] LABS: Alanine Aminotransferase 145 U/L (6-50); Albumin Level 2.6 g/dL (3.5-5.1); Alkaline Phosphatase 132 U/L (38-126); Anion Gap 6 mmol/L (8-16); Aspartate Amino Transferase 447 U/L (17-59); Bilirubin,Total 1.9 mg/dL (0.2-1.3); Blood Urea Nitrogen 12 mg/dL (9-20); Calcium 7.4 mg/dL (8.4-10.2); Carbon Dioxide 24 mmol/L (22-30); Chloride 106 mmol/L (98-107); Estimated CRCL calculation 161 ml/min; Estimated Glomerular Filt Rate > 60; Glucose 221 mg/dL (65-110); Potassium 3.2 mmol/L (3.4-5.0); Sodium 136 mmol/L (137-145)
[2022-03-22 12:19] LABS: Ammonia < 9 umol/L (9-30)
[2022-03-22 12:35] LABS: White Blood Count 1.5 K/mm3 (4.5-10.0)
[2022-03-22] MEDS: INSULIN ASPART (*BKC) 100 UNITS/ML SUB-Q (12:38)
[2022-03-22 16:27] LABS: Glucose Point of Care 182 mg/dl (65-105)
[2022-03-22] MEDS: POTASSIUM CHLORIDE 20 MEQ TABLET 40 MEQ PO (16:51)
[2022-03-22 19:57] LABS: Glucose Point of Care 242 mg/dl (65-105)
[2022-03-22] MEDS: SENNA/DOCUSATE SODIUM TABLET 1 TAB PO (20:49)
[2022-03-23] VITALS (12 sets, daily range): BP systolic 124–143; BP diastolic 54–68; PULSE 67–80; RESP 18–22; TEMP 36.6–37.7; O2SAT 96–98
[2022-03-23 04:36] LABS: Basophils Percent Auto 0.9 % (0.2-1.2); Eosinophils Percent Auto 1.3 % (0-4.4); Hematocrit 26.7 % (42.0-52.0); Hemoglobin 8.7 g/dL (14.0-18.0); Immature Platelet Fraction Pct 6.7 % (0.9-11.2); Lymphocytes Absolute Auto 0.94 K/mm3 (0.9-3.2); Lymphocytes Percent Auto 41.2 % (18.3-44.2); Mean Corpuscular HGB Conc 32.6 g/dl (32-36); Mean Corpuscular Hemoglobin 30.5 pg (26-34); Mean Corpuscular Volume 93.7 fl (80-100); Mean Platelet Volume 11.3 fl (7.4-10.4); Monocytes Absolute Auto 0.3 K/mm3 (0.1-0.6); Monocytes Percent Auto 12.3 % (2.6-8.5); Neutrophils Percent Auto 44.3 % (45.5-73.1); Platelet Count Result 73 k/mm3 (150-375); Red Blood Count 2.85 M/mm3 (4.6-6.20); Red Cell Distribution Width 16.1 % (11.5-14.5); White Blood Count 2.3 K/mm3 (4.5-10.0)
[2022-03-23 04:46] LABS: Alanine Aminotransferase 134 U/L (6-50); Albumin Level 2.5 g/dL (3.5-5.1); Alkaline Phosphatase 140 U/L (38-126); Anion Gap 3 mmol/L (8-16); Aspartate Amino Transferase 332 U/L (17-59); Bilirubin,Total 1.5 mg/dL (0.2-1.3); Blood Urea Nitrogen 7 mg/dL (9-20); Calcium 7.4 mg/dL (8.4-10.2); Carbon Dioxide 25 mmol/L (22-30); Chloride 107 mmol/L (98-107); Estimated CRCL calculation 161 ml/min; Estimated Glomerular Filt Rate > 60; Glucose 169 mg/dL (65-110); Potassium 2.9 mmol/L (3.4-5.0); Sodium 135 mmol/L (137-145)
[2022-03-23] MEDS: SUCRALFATE SUSP 100 MG/ML 10 ML UDC 1000 MG PO ×4 (05:46→20:21)
[2022-03-23] MEDS: chlordiazePOXIDE (*CRX) 25 MG CAPSULE PO ×4 (05:46→23:00)
[2022-03-23 08:05] LABS: Glucose Point of Care 184 mg/dl (65-105)
--- NOTE | 2022-03-23 09:00 | P.PNIM_ITS ---
Progress Note: A&P Assessment and Plan (1) Hypokalemia: Code(s): E87.6 - Hypokalemia Status: Acute Assessment and Plan: * K is 2.9 * 40mcg PO and IV * Recheck one hour post infusion * Trend labs * Labs in the am (2) Pancytopenia: Code(s): D61.818 - Other pancytopenia Status: Acute Assessment and Plan: * WBC are 2.3, RBC 2.85, H/H 8.7/26.7, PLT 73, Neut 44.3 * ANC is 1993 today * Consult oncology * Trend labs * Labs in the am (3) Transaminitis: Code(s): R74.01 - Elevation of levels of liver transaminase levels Status: Acute Assessment and Plan: * Maddrey's discriminant function score is 27.9 * AST/ALT 332/134, alk phos 140, trending down * RUQ ultrasound showed cirrhosis, no bile duct dilatation or stone * Hep panel negative * GI consulted (4) Hyperthermia: Code(s): R50.9 - Fever, unspecified Status: Acute Assessment and Plan: * Temps as high as 102.4 * Seems to be resolving * Trending down, currently 97.9 * Blood, urine, sputum cultures ordered and pending * cefepime and vanco on board * Continue to trend temperature * Tylenol on board (5) Esophageal varices determined by endoscopy: Code(s): I85.00 - Esophageal varices without bleeding Status: Acute Assessment and Plan: * EGD was performed 5 varices banded * GI on board * Trend hemoglobin hematocrit * Carafate ordered * DC NSAIDS * ETOH cessations * See below (6) Acute upper GI bleeding: Code(s): K92.2 - Gastrointestinal hemorrhage, unspecified Status: Acute Assessment and Plan: * Complaints of coffee ground emesis and melena * H/H stable at 8.7/26.7 * GI consulted * EGD performed with 5 bandings of varices * Protonix 40mg BID * Trend H/H Q6hr * Transfuse if H/H <7 * Transfused two units of PRBC on 03/22/22 (7) Acute blood loss anemia: Code(s): D62 - Acute posthemorrhagic anemia Status: Acute Assessment and Plan: * H/H trending down currently 8.7/26.7 * Secondary to esophageal varices * Continue trend H&H * Anemia labs iron 44, TIBC 375, % sat 12, Ferritin 35.50, B12 383, Folate 10.1 * Adjust therapy as indicated * Transfuse if hemoglobin less than 7 * Ferrous sulfate added * 2 units of PRBC transfused 03/22/22 (8) Alcohol abuse: Code(s): F10.10 - Alcohol abuse, uncomplicated Status: Acute Assessment and Plan: * CIWA protocol * Ativan p.r.n. on board * Librium scheduled * Trend for DTs * Adjust therapy as indicated (9) Type 2 diabetes mellitus: Code(s): E11.9 - Type 2 diabetes mellitus without complications Status: Acute Assessment and Plan: * Glucose 169 * Accu-Cheks Q6H * sliding scale insulin * Hold oral medications at this time * Trend glucose * Adjust therapy as indiciated (10) Hyperbilirubinemia: Code(s): E80.6 - Other disorders of bilirubin metabolism Status: Acute Assessment and Plan: * Bili 1.5 * Continue to trend * Probably related to GI bleed * GI on board Time Spent With Patient Time with patient: Greater than 35 minutes Subjective Date/time seen: 03/23/22 09:00
--- NOTE | 2022-03-23 09:00 | PM.IMPN ---
Progress Note: A&P Assessment and Plan (1) Hypokalemia: Code(s): E87.6 - Hypokalemia Status: Acute Assessment and Plan: K is 2.9 40mcg PO and IV Recheck one hour post infusion Trend labs Labs in the am (2) Pancytopenia: Code(s): D61.818 - Other pancytopenia Status: Acute Assessment and Plan: WBC are 2.3, RBC 2.85, H/H 8.7/26.7, PLT 73, Neut 44.3 ANC is 1993 today Consult oncology Trend labs Labs in the am (3) Transaminitis: Code(s): R74.01 - Elevation of levels of liver transaminase levels Status: Acute Assessment and Plan: Maddrey's discriminant function score is 27.9 AST/ALT 332/134, alk phos 140, trending down RUQ ultrasound showed cirrhosis, no bile duct dilatation or stone Hep panel negative GI consulted (4) Hyperthermia: Code(s): R50.9 - Fever, unspecified Status: Acute Assessment and Plan: Temps as high as 102.4 Seems to be resolving Trending down, currently 97.9 Blood, urine, sputum cultures ordered and pending cefepime and vanco on board Continue to trend temperature Tylenol on board (5) Esophageal varices determined by endoscopy: Code(s): I85.00 - Esophageal varices without bleeding Status: Acute Assessment and Plan: EGD was performed 5 varices banded GI on board Trend hemoglobin hematocrit Carafate ordered DC NSAIDS ETOH cessations See below (6) Acute upper GI bleeding: Code(s): K92.2 - Gastrointestinal hemorrhage, unspecified Status: Acute Assessment and Plan: Complaints of coffee ground emesis and melena H/H stable at 8.7/26.7 GI consulted EGD performed with 5 bandings of varices Protonix 40mg BID Trend H/H Q6hr Transfuse if H/H <7 Transfused two units of PRBC on 03/22/22 (7) Acute blood loss anemia: Code(s): D62 - Acute posthemorrhagic anemia Status: Acute Assessment and Plan: H/H trending down currently 8.7/26.7 Secondary to esophageal varices Continue trend H&H Anemia labs iron 44, TIBC 375, % sat 12, Ferritin 35.50, B12 383, Folate 10.1 Adjust therapy as indicated Transfuse if hemoglobin less than 7 Ferrous sulfate added 2 units of PRBC transfused 03/22/22 (8) Alcohol abuse: Code(s): F10.10 - Alcohol abuse, uncomplicated Status: Acute Assessment and Plan: CIWA protocol Ativan p.r.n. on board Librium scheduled Trend for DTs Adjust therapy as indicated (9) Type 2 diabetes mellitus: Code(s): E11.9 - Type 2 diabetes mellitus without complications Status: Acute Assessment and Plan: Glucose 169 Accu-Cheks Q6H sliding scale insulin Hold oral medications at this time Trend glucose Adjust therapy as indiciated (10) Hyperbilirubinemia: Code(s): E80.6 - Other disorders of bilirubin metabolism Status: Acute Assessment and Plan: Bili 1.5 Continue to trend Probably related to GI bleed GI on board Time Spent With Patient Time with patient: Greater than 35 minutes Subjective Date/time seen: 03/23/22 09:00 Interval history: 03/23/22 0900 Patient does seem to be a little bit more stable today. He said he has been up and down from the side the bed. Lab work seems to be getting better today. He denies any chest pain, shortness of breath, nausea, vomiting, diarrhea, constipation weakness or fatigue. He did state that he is feeling overall better. White blood cell count is 2.3 today, AST ALT are down to 332/134. Patient appears to be stable enough for a downgrade to a med/surg floor. 03/22/22 0845 Patient looks very lethargic and weak today. He has no complaints. He did state that he does feel very tired and just feels like he can not get enough sleep. He also appears to be very pale. He denies any chest pain, shortness
[2022-03-23] MEDS: POTASSIUM CHLORIDE 20 MEQ TABLET 40 MEQ PO (09:01)
[2022-03-23] MEDS: PANTOPRAZOLE 40 MG TABLET PO ×2 (09:01→20:21)
[2022-03-23] MEDS: FERROUS SULFATE 324 MG TABLET PO ×2 (09:01→16:27)
[2022-03-23] MEDS: THERAPEUTIC MULTIVITAMINS/MINERALS TAB (*BKC) 1 TABLET PO (09:01)
[2022-03-23] MEDS: THIAMINE HCL 100 MG TABLET PO (09:01)
[2022-03-23] MEDS: FOLIC ACID 1 MG TABLET PO (09:01)
[2022-03-23] MEDS: POTASSIUM CHLORIDE INJ 40 MEQ in SODIUM CHLORIDE 0.9% IV 500 ML 130 MEQ IVPB (09:02)
--- NOTE | 2022-03-23 11:32 | WPDGIPROGNO ---
Subjective Date/time seen: 03/23/22 11:32 Patient feeling better. No nausea, vomiting, hematemesis, hematochezia or melena. Tolerating diet. Hemoglobin hematocrit are stable. Impression: Coffee-ground emesis and melena secondary to esophageal varices and portal hypertensive gastropathy. Cirrhosis/alcoholic hepatitis? with complicating factors: Esophageal varices. Pancytopenia secondary to hypersplenism. Portal hypertensive gastropathy. Coagulopathy. Acute blood loss anemia.? Alcohol abuse. Leukocytosis with pulmonary infiltrates. Pneumonia? White blood cell count is improving. PMH:? HLD, DM, obesity. Recommendation: Continue PPI. Will require follow-up EGD for further esophageal variceal ligation. As per hospitalist. Continue antibiotics. [facility] will follow in a.m.. Objective Data Vital Signs Vital Signs: Vital Signs - 24 hr 03/22/22 12:00 03/22/22 14:21 03/22/22 14:26 Temperature 38.1 C H 37.9 C H 37.9 C H Pulse Rate 81 77 77 Respiratory Rate 20 14 14 Blood Pressure 145/57 H 123/60 123/60 Pulse Oximetry 98 97 97 Oxygen Delivery 03/22/22 14:45 03/22/22 12:00 03/22/22 14:00 Temperature 37.9 C H Pulse Rate 80 79 79 Respiratory Rate 14 Blood Pressure 125/53 L Pulse Oximetry 96 Oxygen Delivery 03/22/22 15:45 03/22/22 16:00 03/22/22 16:00 Temperature 38.6 C H 38.6 C H Pulse Rate 77 77 Respiratory Rate 20 20 Blood Pressure 140/57 L 140/57 L Pulse Oximetry 98 98 Oxygen Delivery Room Air 03/22/22 16:00 03/22/22 16:45 03/22/22 17:43 Temperature 37.7 C H 38.0 C H Pulse Rate 76 72 79 Respiratory Rate 14 14 Blood Pressure 124/61 125/63 Pulse Oximetry 98 97 Oxygen Delivery 03/22/22 18:00 03/22/22 20:00 03/22/22 20:00 Temperature 36.7 C Pulse Rate 80 80 78 Respiratory Rate 20 Blood Pressure 128/61 Pulse Oximetry 97 Oxygen Delivery 03/22/22 20:00 03/22/22 20:00 03/22/22 22:00 Temperature Pulse Rate 78 73 Respiratory Rate 20 Blood Pressure 128/61 Pulse Oximetry 97 Oxygen Delivery Room Air 03/22/22 23:08 03/23/22 00:00 03/23/22 00:00 Temperature 36.7 C Pulse Rate 76 80 Respiratory Rate 20 Blood Pressure 130/64 130/64 Pulse Oximetry 97 Oxygen Delivery 03/23/22 00:00 03/23/22 02:00 03/23/22 04:00 Temperature Pulse Rate 80 70 70 Respiratory Rate 20 Blood Pressure Pulse Oximetry 97 Oxygen Delivery Room Air 03/23/22 04:00 03/23/22 04:00 03/23/22 04:00 Temperature 36.6 C Pulse Rate 70 71 Respiratory Rate 20 22 H Blood Pressure 130/64 133/68 Pulse Oximetry 97 98 Oxygen Delivery Room Air 03/23/22 06:00 03/23/22 08:20 03/23/22 08:00 Temperature 37.7 C H Pulse Rate 74 73 69 Respiratory Rate 20 Blood Pressure 124/54 L Pulse Oximetry 96 Oxygen Delivery 03/23/22 09:00 03/23/22 10:00 Temperature Pulse Rate 71 Respiratory Rate Blood Pressure Pulse Oximetry Oxygen Delivery Room Air Intake/Output Intake/Output: Intake & Output 03/20/22 03/21/22 03/22/22 03/23/22 23:59 23:59 23:59 23:59 Intake Total 4370 1950 520 Output Total 725 1750 250 Balance 3645 200 270 Meds/Results Medications: Active Medications Generic Name Dose Route Start Last Admin Trade Name Freq PRN Reason Stop Dose Admin Acetaminophen 1,000 mg 03/21/22 13:15 Acetaminophen 500 Mg Tablet PO Q6H PRN Mild Pain (1-3) or Fever Chlordiazepoxide HCl 25 mg 03/21/22 12:00 03/23/22 05:46 Chlordiazepoxide (*Crx) 25 Mg Capsule PO 25 mg Q6HR JUSTICE Administration Dextrose 12.5 gm 03/21/22 09:18 Dextrose 50% 25 Gm/50 Ml Syringe IV PUSH PRN PRN Hypoglycemia Protocol Ferrous Sulfate 324 mg 03/22/22 08:00 03/23/22 09:01 Ferrous Sulfate 324 Mg Tablet PO 324 mg BIDWM JUSTICE Administration Folic Acid 1 mg 03/21/22 09:00 03/23/22 09:01 Folic Acid 1 Mg Tablet PO 1 mg DAILY JUSTICE Admin
[2022-03-23 11:57] LABS: Glucose Point of Care 203 mg/dl (65-105)
[2022-03-23] MEDS: INSULIN ASPART (*BKC) 100 UNITS/ML SUB-Q ×2 (12:28→16:29)
--- NOTE | 2022-03-23 15:45 | PC.NURSE ---
This patient, Nabeel Elias, was transferred to [facility] on 03/23/22 at 1545. Personal belongings sent with patient. Report given to MANASA Kitchen. Appropriate documentation sent with patient.
--- NOTE | 2022-03-23 15:51 | PC.NURSE ---
This patient, Nabeel Elias, was received from [[facility] ] on 03/23/22 at 1551. Patient/family oriented to unit policies and routines
[2022-03-23 16:28] LABS: Glucose Point of Care 216 mg/dl (65-105)
[2022-03-23] MEDS: SENNA/DOCUSATE SODIUM TABLET 1 TAB PO (20:21)
[2022-03-23 20:42] LABS: Glucose Point of Care 212 mg/dl (65-105)
[2022-03-24 02:27] LABS: Basophils Percent Auto 0.9 % (0.2-1.2); Eosinophils Percent Auto 1.7 % (0-4.4); Hematocrit 27.4 % (42.0-52.0); Hemoglobin 8.9 g/dL (14.0-18.0); Immature Granulocyte Absolute 0.01 K/mm3 (0.00-0.031); Immature Granulocyte Percent A 0.4 % (0-0.5); Lymphocytes Absolute Auto 0.87 K/mm3 (0.9-3.2); Lymphocytes Percent Auto 37.8 % (18.3-44.2); Mean Corpuscular HGB Conc 32.5 g/dl (32-36); Mean Corpuscular Hemoglobin 30.6 pg (26-34); Mean Corpuscular Volume 94.2 fl (80-100); Mean Platelet Volume 11.3 fl (7.4-10.4); Monocytes Absolute Auto 0.2 K/mm3 (0.1-0.6); Monocytes Percent Auto 10.4 % (2.6-8.5); Neutrophils Absolute Auto 1.1 K/mm3 (1.3-6.7); Neutrophils Percent Auto 48.8 % (45.5-73.1); Platelet Count Result 77 k/mm3 (150-375); Red Blood Count 2.91 M/mm3 (4.6-6.20); Red Cell Distribution Width 16.2 % (11.5-14.5); White Blood Count 2.3 K/mm3 (4.5-10.0)
[2022-03-24 02:36] LABS: Alanine Aminotransferase 119 U/L (6-50); Albumin Level 2.6 g/dL (3.5-5.1); Alkaline Phosphatase 147 U/L (38-126); Anion Gap 0 mmol/L (8-16); Aspartate Amino Transferase 222 U/L (17-59); Bilirubin,Total 1.4 mg/dL (0.2-1.3); Blood Urea Nitrogen 6 mg/dL (9-20); Calcium 7.5 mg/dL (8.4-10.2); Carbon Dioxide 27 mmol/L (22-30); Chloride 109 mmol/L (98-107); Estimated CRCL calculation 140 ml/min; Estimated Glomerular Filt Rate > 60; Glucose 166 mg/dL (65-110); Potassium 3.1 mmol/L (3.4-5.0); Sodium 136 mmol/L (137-145)
[2022-03-24 02:52] LABS: Vancomycin Trough 10.4 ug/mL (10.0-20.0)
[2022-03-24 03:41] VITALS: BP 129/47; PULSE 74; RESP 18; TEMP 36.6; O2SAT 95
[2022-03-24] MEDS: chlordiazePOXIDE (*CRX) 25 MG CAPSULE PO ×4 (05:43→23:05)
[2022-03-24] MEDS: SUCRALFATE SUSP 100 MG/ML 10 ML UDC 1000 MG PO ×4 (05:44→21:04)
--- NOTE | 2022-03-24 06:49 | P.PNIM_ITS ---
Progress Note: A&P Assessment and Plan (1) Esophageal varices determined by endoscopy: Code(s): I85.00 - Esophageal varices without bleeding <Dee GaytanKYLE escalona - Last Filed: 03/24/22 12:33> Status: Acute <Dee GaytanKYLE escalona - Last Filed: 03/24/22 12:33> Assessment and Plan: * EGD was performed 5 varices banded * GI on board * Trend hemoglobin hematocrit- still improving. * Carafate ordered * DC NSAIDS * ETOH cessations * See below <Dee GaytanKYLE escalona - Last Filed: 03/24/22 12:33> (2) Acute upper GI bleeding: Code(s): K92.2 - Gastrointestinal hemorrhage, unspecified <Dee GaytanKYLE escalona - Last Filed: 03/24/22 12:33> Status: Acute <Dee GaytanKYLE escalona - Last Filed: 03/24/22 12:33> Assessment and Plan: * Complaints of coffee ground emesis and melena * H/H stable at 8.7/26.7 * GI consulted * EGD performed with 5 bandings of varices * Protonix 40mg BID * Trend H/H Q6hr * Transfuse if H/H <7 * Transfused two units of PRBC on 03/22/22 <Dee GaytanKYLE escalona - Last Filed: 03/24/22 12:33> (3) Hypokalemia: Code(s): E87.6 - Hypokalemia <Dee GaytanKYLE escalona - Last Filed: 03/24/22 12:33> Status: Acute <Dee GaytanKYLE escalona - Last Filed: 03/24/22 12:33> Assessment and Plan: * K is 3.1 * 40mcg PO * Trend labs * Labs in the am <Dee GaytanKYLE escalona - Last Filed: 03/24/22 12:33> (4) Pancytopenia: Code(s): D61.818 - Other pancytopenia <Dee Corrigan KYLE Pelayo - Last Filed: 03/24/22 12:33> Status: Acute <Dee Pelayo MADYSONVanessaC - Last Filed: 03/24/22 12:33> Assessment and Plan: * WBC are 2.3, RBC 2.91, H/H 8.9/27.4, PLT 77, Neut 48.3- all improved. * Consult oncology placed, pending. * Trend labs * Labs in the am <Dee PelayoROLANDAC - Last Filed: 03/24/22 12:33> (5) Transaminitis: Code(s): R74.01 - Elevation of levels of liver transaminase levels <Dee Pelayo MADYSON-C - Last Filed: 03/24/22 12:33> Status: Acute <Dee Pelayo MADYSON-C - Last Filed: 03/24/22 12:33> Assessment and Plan: * AST/ALT/alk phos trending down * RUQ ultrasound showed cirrhosis, no bile duct dilatation or stone * Hep panel negative * GI consulted <Dee GaytanROLANDA escalonaC - Last Filed: 03/24/22 12:33> (6) Hyperthermia: Code(s): R50.9 - Fever, unspecified <Dee Pelayo MADYSONVanessaC - Last Filed: 03/24/22 12:33> Status: Acute <Dee Pelayo MADYSONVanessaC - Last Filed: 03/24/22 12:33> Assessment and Plan: * Temps as high as 102.4, afebrile today. * 03/23 CXR showed Bilateral mid and particularly lower lung zone infiltrates and/atelectasis, increased since 03/21/2022 mild congestive changes. * Incentive spirometry * Seems to be resolving * Trending down, currently 97.9 * Blood, urine cultures show no growth to date. * cefepime and vanco on board, will continue for now. * Continue to trend temperature * Tylenol on board <Dee GaytanKYLE escalona - Last Filed: 03/24/22 12:33> (7) Acute blood loss anemia: Code(s): D62 - Acute posthemorrhagic anemia <Dee GaytanROLANDA escalonaC - Last Filed: 03/24/22 12:33> Status: Acute <Dee Pelayo PA-C - Last Filed: 03/24/22 12:33> Assessment and Plan: * H/H uptrending * Secondary to esophageal varices * Continue trend H&H * Anemia labs iron 44, TIBC 375, % sat
--- NOTE | 2022-03-24 06:49 | PM.IMPN ---
Progress Note: A&P Assessment and Plan (1) Esophageal varices determined by endoscopy: Code(s): I85.00 - Esophageal varices without bleeding <Dee Pelayo PA-C - Last Filed: 03/24/22 12:33> Status: Acute <Dee Pelayo PA-C - Last Filed: 03/24/22 12:33> Assessment and Plan: EGD was performed 5 varices banded GI on board Trend hemoglobin hematocrit- still improving. Carafate ordered DC NSAIDS ETOH cessations See below <Dee Pelayo PA-C - Last Filed: 03/24/22 12:33> (2) Acute upper GI bleeding: Code(s): K92.2 - Gastrointestinal hemorrhage, unspecified <Dee Pelayo PA-C - Last Filed: 03/24/22 12:33> Status: Acute <Dee Pelayo PA-C - Last Filed: 03/24/22 12:33> Assessment and Plan: Complaints of coffee ground emesis and melena H/H stable at 8.7/26.7 GI consulted EGD performed with 5 bandings of varices Protonix 40mg BID Trend H/H Q6hr Transfuse if H/H <7 Transfused two units of PRBC on 03/22/22 <Dee Pelayo PA-C - Last Filed: 03/24/22 12:33> (3) Hypokalemia: Code(s): E87.6 - Hypokalemia <Dee Pelayo PA-C - Last Filed: 03/24/22 12:33> Status: Acute <Dee Pelayo PA-C - Last Filed: 03/24/22 12:33> Assessment and Plan: K is 3.1 40mcg PO Trend labs Labs in the am <Dee Pelayo PA-C - Last Filed: 03/24/22 12:33> (4) Pancytopenia: Code(s): D61.818 - Other pancytopenia <Dee Pelayo PA-C - Last Filed: 03/24/22 12:33> Status: Acute <Dee Pelayo PA-C - Last Filed: 03/24/22 12:33> Assessment and Plan: WBC are 2.3, RBC 2.91, H/H 8.9/27.4, PLT 77, Neut 48.3- all improved. Consult oncology placed, pending. Trend labs Labs in the am <Dee GaytanKYLE escalona - Last Filed: 03/24/22 12:33> (5) Transaminitis: Code(s): R74.01 - Elevation of levels of liver transaminase levels <Dee GaytanKYLE escalona - Last Filed: 03/24/22 12:33> Status: Acute <Dee GaytanKYLE escalona - Last Filed: 03/24/22 12:33> Assessment and Plan: AST/ALT/alk phos trending down RUQ ultrasound showed cirrhosis, no bile duct dilatation or stone Hep panel negative GI consulted <Dee HuttonNini Pelayo PA-C - Last Filed: 03/24/22 12:33> (6) Hyperthermia: Code(s): R50.9 - Fever, unspecified <Dee GaytanKYLE escalona - Last Filed: 03/24/22 12:33> Status: Acute <Dee GaytanKYLE escalona - Last Filed: 03/24/22 12:33> Assessment and Plan: Temps as high as 102.4, afebrile today. 03/23 CXR showed Bilateral mid and particularly lower lung zone infiltrates and/atelectasis, increased since 03/21/2022 mild congestive changes. Incentive spirometry Seems to be resolving Trending down, currently 97.9 Blood, urine cultures show no growth to date. cefepime and vanco on board, will continue for now. Continue to trend temperature Tylenol on board <Dee GaytanKYLE escalona - Last Filed: 03/24/22 12:33> (7) Acute blood loss anemia: Code(s): D62 - Acute posthemorrhagic anemia <Dee GaytanKYLE escalona - Last Filed: 03/24/22 12:33> Status: Acute <Dee GaytanKYLE escalona - Last Filed: 03/24/22 12:33> Assessment and Plan: H/H uptrending Secondary to esophageal varices Continue trend H&H Anemia labs iron 44, TIBC 375, % sat 12, Ferritin 35.50, B12 383, Folate 10.1 Adjust therapy as indicated Transfuse if hemoglobin less than 7 Ferrous sulfate added 2 units of PRBC transfused 03/22/22, patient stable since this. <Dee Pelayo PA-C - Last Filed: 03/24/22 12:33> (8) Alcohol abuse: Code(s): F10.10 - Alcohol abuse, uncomplicated <Dee Pelayo PA-C - Last Filed: 03/24/22 12:33> Status: Acute <Dee Pelayo PA-C - Last Filed: 03/24/22 12:33> Assessment and Plan: BENNC protocol
[2022-03-24 07:34] LABS: Glucose Point of Care 184 mg/dl (65-105)
[2022-03-24] MEDS: POTASSIUM CHLORIDE 20 MEQ TABLET 40 MEQ PO (08:15)
[2022-03-24] MEDS: PANTOPRAZOLE 40 MG TABLET PO ×2 (08:15→21:04)
[2022-03-24] MEDS: THIAMINE HCL 100 MG TABLET PO (08:15)
[2022-03-24] MEDS: THERAPEUTIC MULTIVITAMINS/MINERALS TAB (*BKC) 1 TABLET PO (08:15)
[2022-03-24] MEDS: FOLIC ACID 1 MG TABLET PO (08:15)
[2022-03-24] MEDS: FERROUS SULFATE 324 MG TABLET PO ×2 (08:15→16:13)
[2022-03-24] MEDS: polyethylene glycoL 3350 17 GM POWD.PACK PO (08:15)
[2022-03-24 11:11] LABS: Glucose Point of Care 271 mg/dl (65-105)
[2022-03-24] MEDS: INSULIN ASPART (*BKC) 100 UNITS/ML SUB-Q ×2 (11:16→16:37)
--- NOTE | 2022-03-24 13:38 | WPDGIPROGNO ---
Progress Note: A&P Assessment and Plan (1) Esophageal varices determined by endoscopy: Code(s): I85.00 - Esophageal varices without bleeding Status: Acute Assessment and Plan: Patient admitted with evidence for upper GI bleeding. Esophageal varices required banding on 03/21. Patient should have follow-up EGD in 6-8 weeks for additional banding of these varices. This can be performed electively even as an outpatient through the GI office. (2) Cirrhosis: Code(s): K74.60 - Unspecified cirrhosis of liver Status: Acute Assessment and Plan: Patient with alcoholic cirrhosis of liver. Alcohol abstinence strongly encouraged. Supportive care. Strict alcohol avoidance suggested (3) Pancytopenia: Code(s): D61.818 - Other pancytopenia Status: Acute Assessment and Plan: pancytopenia identified suggesting bone marrow suppression by alcohol use. (4) Alcohol abuse: Code(s): F10.10 - Alcohol abuse, uncomplicated Status: Acute Assessment and Plan: Abstinence from alcohol and alcohol rehab strongly encouraged. Subjective Date/time seen: 03/24/22 13:38 Patient with a long history of alcohol use. Admitted the hospital with upper GI bleeding. Endoscopy by Dr. Reid revealed alcoholic gastritis and esophageal varices that were banded. Patient has evidence for cirrhosis by both ultrasound and CT scanning. Laboratory work appears to correlate with cirrhosis as well. Patient currently denies any ongoing bleeding. Review of Systems Review of Systems: Noncontributory review of systems Exam Narrative: physical exam reveals patient be alert comfortable at rest. HEENT exam reveals no icterus. Lungs are clear. Heart without murmur. Abdomen bowel sounds present soft nontender. Objective Data Vital Signs Vital Signs: Vital Signs - 24 hr 03/23/22 14:00 03/23/22 19:09 03/23/22 20:20 Temperature 98 F Pulse Rate 72 76 Respiratory Rate 18 Blood Pressure 143/60 H 143/60 H Pulse Oximetry 98 Oxygen Delivery 03/24/22 03:41 03/24/22 08:00 Temperature 97.9 F Pulse Rate 74 Respiratory Rate 18 Blood Pressure 129/47 L Pulse Oximetry 95 Oxygen Delivery Room Air Intake/Output Intake/Output: Intake & Output 03/21/22 03/22/22 03/23/22 03/24/22 23:59 23:59 23:59 23:59 Intake Total 4370 1950 2430 900 Output Total 725 1750 950 Balance 3645 200 1480 900 Meds/Results Medications: Active Medications Generic Name Dose Route Start Last Admin Trade Name Freq PRN Reason Stop Dose Admin Acetaminophen 1,000 mg 03/21/22 13:15 Acetaminophen 500 Mg Tablet PO Q6H PRN Mild Pain (1-3) or Fever Chlordiazepoxide HCl 25 mg 03/21/22 12:00 03/24/22 11:16 Chlordiazepoxide (*Crx) 25 Mg Capsule PO 25 mg Q6HR JUSTICE Administration Dextrose 12.5 gm 03/21/22 09:18 Dextrose 50% 25 Gm/50 Ml Syringe IV PUSH PRN PRN Hypoglycemia Protocol Ferrous Sulfate 324 mg 03/22/22 08:00 03/24/22 08:15 Ferrous Sulfate 324 Mg Tablet PO 324 mg BIDWM JUSTICE Administration Folic Acid 1 mg 03/21/22 09:00 03/24/22 08:15 Folic Acid 1 Mg Tablet PO 1 mg DAILY JUSTICE Administration Glucagon 1 mg 03/21/22 09:18 Glucagon For Inj 1 Mg Vial IM PRN PRN Hypoglycemia Protocol Glucose 15 gm 03/21/22 09:18 Glucose Oral Gel 15 Gm Of Glucse In 37.5 Gm Tube PO PRN PRN Hypoglycemia Protocol Dextrose 1,000 mls @ 100 mls/hr 03/21/22 09:18 Dextrose 5% 1,000 Ml IVPB PRN PRN Hypoglycemia Protocol Cefepime HCl 1 gm in 50 mls @ 100 mls/hr 03/22/22 22:00 03/24/22 13:06 Maxipime 1 Gm/D5w 50 Ml IVPB 100 mls/hr Q8H JUSTICE Administration Vancomycin HCl 1,750 mg in 500 mls @ 250 mls/hr 03/22/22 15:00 03/24/22 05:02 Vancomycin 1,750 Mg/D5w 500 Ml IVPB Infused Q12H JUSTICE Infusion Insulin Aspart 4 - 8 units 03/21/22 12:00 03/24/22 11:16 Aural
[2022-03-24 14:03] VITALS: BP 132/50; PULSE 77; RESP 18; TEMP 37.3; O2SAT 97
[2022-03-24 16:23] LABS: Glucose Point of Care 251 mg/dl (65-105)
--- NOTE | 2022-03-24 18:23 | PDONCCN ---
HPI - Date of Consult Date/Time: 03/24/22 18:23 Requesting Physician: Dee Pelayo PA-C Primary Care Provider: PHYSICIAN NOT ON STAFF - Consult Narrative Reason for consult: Pancytopenia Narrative: Nabeel Elias is a 57 year old male with history of alcohol abuse with with with been with [facility] in [facility] from [place] came into the hospital with coffee-ground emesis with melena for 3-4 days duration. He denies any history of previous GI bleed. His labs showed WBC count of 0.9 hemoglobin of 8.3 [place] [address] [place] abdomen and pelvis showed cirrhosis with splenomegaly and esophageal varices. EGD was performed that showed portal hypertensive gastropathy and gastric polyp as well as moderately large esophageal varices. Patient had as official varices banding done on March 21. He denies any previous history of malignancy and bone marrow disorders. No other new complaints. Review of Systems - Review of Systems All systems reviewed & are unremarkable except as noted in HPI and bel - Neurologic Reports hearing normal, Reports weakness PMFSH Medical History: Medical History (Last Updated 03/22/22 @ 13:56 by Mynor Reid DO) Alcohol abuse Alcoholic cirrhosis Diabetes mellitus Esophageal varices GERD (gastroesophageal reflux disease) HLD (hyperlipidemia) Hypothyroid Obesity Portal hypertensive gastropathy Surgical History: Surgical History (Last Reviewed 03/21/22 @ 04:45 by Mayra Maddox DO) No pertinent past surgical history Family History: Family History (Last Reviewed 03/21/22 @ 04:45 by Mayra Maddox DO) Father Hypertension Mother Breast cancer - Social History Social History: Social History (Last Reviewed 03/21/22 @ 04:45 by Mayra Maddox DO) Gender Identity: Gender identity (if verbalized by the patient): Male Alcohol Use: Alcohol intake: current Drinks per week: 50 Alcohol use details: 6-7 vodka drinks nightly for 10+ years Substance Use: Substance use: never Substance use type: does not use Others: Spiritual care concerns: No Agree to blood products: Yes Smoking Status: Smoking status: Never smoker Second hand tobacco smoke exposure: No Meds Home Medications Medication Instructions Recorded Confirmed Type escitalopram oxalate 20 mg tablet 20 tablet PO DAILY 03/21/22 03/21/22 History glipizide 2.5 mg tablet, extended 2.5 tablet PO DAILY 03/21/22 03/21/22 History release 24 hr levothyroxine 50 mcg tablet 50 tablet PO DAILY 03/21/22 03/21/22 History omeprazole 20 mg capsule,delayed 20 mg PO DAILY 03/21/22 03/21/22 History release pravastatin 10 mg tablet 10 tablet PO DAILY 03/21/22 03/21/22 History Allergies Allergy/AdvReac Type Severity Reaction Status Date / Time No Known Allergies Allergy Verified 03/21/22 08:48 Results - Labs CBC & Chem 7: 03/24/22 02:05 03/24/22 02:05 Labs: Short CBC 03/24/22 Range/Units 02:05 WBC 2.3 L (4.5-10.0) K/mm3 Hgb 8.9 L (14.0-18.0) g/dL Hct 27.4 L (42.0-52.0) % Plt Count 77 L (150-375) k/mm3 BMP 03/24/22 02:05 Sodium 136 L Potassium 3.1 L Chloride 109 H Carbon Dioxide 27 BUN 6 L Creatinine 0.70 Glucose 166 H Calcium 7.5 L Liver Function 03/24/22 Range/Units 02:05 Total Bilirubin 1.4 H (0.2-1.3) mg/dL AST 222 H (17-59) U/L ALT 119 H (6-50) U/L Alkaline Phosphatase 147 H (38-126) U/L Albumin 2.6 L (3.5-5.1) g/dL Assessment and Plan - Additional Plan Pancytopenia. This is the 57-year-old obese male with history of alcohol abuse came into the hospital with coffee-ground emesis and melena. CT abdomen showed liver cirrhosis with splenomegaly. EGD showed esophageal varices. Patient had banding done on March 21. His pancytopenia secondary to liver cirrhosis and splenomegaly and bone marrow suppression from alcohol abuse. I will also c
[2022-03-24] MEDS: SENNA/DOCUSATE SODIUM TABLET 1 TAB PO (21:04)
[2022-03-24 21:12] LABS: Glucose Point of Care 214 mg/dl (65-105)
[2022-03-24 22:00] VITALS: BP 128/64; PULSE 85; RESP 20; TEMP 36.5; O2SAT 98
[2022-03-25 04:47] VITALS: O2SAT 95
[2022-03-25] MEDS: chlordiazePOXIDE (*CRX) 25 MG CAPSULE PO ×2 (05:12→11:54)
[2022-03-25] MEDS: SUCRALFATE SUSP 100 MG/ML 10 ML UDC 1000 MG PO ×2 (05:12→11:54)
[2022-03-25 05:34] LABS: Alpha-1-Antitrypsin, QN 165 mg/dL (83-199); Ceruloplasmin 28 mg/dL (18-36)
[2022-03-25 06:00] VITALS: BP 138/63; PULSE 74; RESP 18; TEMP 36.2; O2SAT 97
[2022-03-25 07:31] LABS: Glucose Point of Care 217 mg/dl (65-105)
[2022-03-25 07:44] LABS: Basophils Percent Auto 0.5 % (0.2-1.2); Eosinophils Absolute Auto 0.1 K/mm3 (0-0.3); Eosinophils Percent Auto 3.4 % (0-4.4); Hematocrit 26.9 % (42.0-52.0); Hemoglobin 8.6 g/dL (14.0-18.0); Immature Platelet Fraction Pct 4.9 % (0.9-11.2); Lymphocytes Absolute Auto 0.75 K/mm3 (0.9-3.2); Lymphocytes Percent Auto 36.9 % (18.3-44.2); Mean Corpuscular Hemoglobin 30.3 pg (26-34); Mean Corpuscular Volume 94.7 fl (80-100); Mean Platelet Volume 11.1 fl (7.4-10.4); Monocytes Absolute Auto 0.3 K/mm3 (0.1-0.6); Monocytes Percent Auto 15.8 % (2.6-8.5); Neutrophils Absolute Auto 0.9 K/mm3 (1.3-6.7); Neutrophils Percent Auto 43.4 % (45.5-73.1); Platelet Count Result 71 k/mm3 (150-375); Red Blood Count 2.84 M/mm3 (4.6-6.20); Red Cell Distribution Width 16.1 % (11.5-14.5)
[2022-03-25 07:56] LABS: Alanine Aminotransferase 88 U/L (6-50); Albumin Level 2.5 g/dL (3.5-5.1); Alkaline Phosphatase 149 U/L (38-126); Anion Gap 2 mmol/L (8-16); Aspartate Amino Transferase 132 U/L (17-59); Bilirubin,Total 1.3 mg/dL (0.2-1.3); Blood Urea Nitrogen 4 mg/dL (9-20); Calcium 7.3 mg/dL (8.4-10.2); Carbon Dioxide 24 mmol/L (22-30); Chloride 109 mmol/L (98-107); Estimated CRCL calculation 124 ml/min; Estimated Glomerular Filt Rate > 60; Glucose 209 mg/dL (65-110); Magnesium 1.9 mg/dL (1.6-2.3); Potassium 3.2 mmol/L (3.4-5.0); Sodium 135 mmol/L (137-145)
--- NOTE | 2022-03-25 08:30 | PM.DS ---
DS: Admitting Diagnosis Discharge Date 03/25/22 0830 Admitting Diagnosis Bleeding esophageal varices, acute blood loss anemia, cirrhosis DS: Discharge Diagnosis Discharge Diagnosis (1) Esophageal varices determined by endoscopy: Code(s): I85.00 - Esophageal varices without bleeding Status: Acute Assessment and Plan: EGD was performed 5 varices banded GI on board Trend hemoglobin hematocrit- still improving. Carafate ordered DC NSAIDS ETOH cessations See below (2) Acute upper GI bleeding: Code(s): K92.2 - Gastrointestinal hemorrhage, unspecified Status: Acute Assessment and Plan: Complaints of coffee ground emesis and melena H/H stable at 8.6/26.9 GI consulted EGD performed with 5 bandings of varices Protonix 40mg BID Trend H/H Q6hr Transfuse if H/H <7 Transfused two units of PRBC on 03/22/22 (3) Hypokalemia: Code(s): E87.6 - Hypokalemia Status: Acute Assessment and Plan: K is 3.2 40mcg PO once Replace as indicated Trend labs Labs in the am (4) Pancytopenia: Code(s): D61.818 - Other pancytopenia Status: Acute Assessment and Plan: WBC are 2.0, RBC 2.84, H/H 8.6/26.9, PLT 71, Neut 43.4- all improved. Consulted oncology than you for your help Trend labs Labs in the am (5) Transaminitis: Code(s): R74.01 - Elevation of levels of liver transaminase levels Status: Acute Assessment and Plan: AST/ALT/alk phos trending down RUQ ultrasound showed cirrhosis, no bile duct dilatation or stone Hep panel negative GI consulted (6) Hyperthermia: Code(s): R50.9 - Fever, unspecified Status: Acute Assessment and Plan: Remains afebrile Temps as high as 102.4, afebrile today. 03/23 CXR showed Bilateral mid and particularly lower lung zone infiltrates and/atelectasis, increased since 03/21/2022 mild congestive changes. Incentive spirometry Seems to be resolving Trending down, currently 97.9 Blood, urine cultures show no growth to date. cefepime and vanco on board, will continue for now. Continue to trend temperature Tylenol on board (7) Acute blood loss anemia: Code(s): D62 - Acute posthemorrhagic anemia Status: Acute Assessment and Plan: H/H uptrending Secondary to esophageal varices Continue trend H&H Anemia labs iron 44, TIBC 375, % sat 12, Ferritin 35.50, B12 383, Folate 10.1 Adjust therapy as indicated Transfuse if hemoglobin less than 7 Ferrous sulfate added 2 units of PRBC transfused 03/22/22, patient stable since this. (8) Alcohol abuse: Code(s): F10.10 - Alcohol abuse, uncomplicated Status: Acute Assessment and Plan: CIWA protocol Ativan p.r.n. on board Librium scheduled Trend for DTs Adjust therapy as indicated On thiamine/ folic acid supplementation. (9) Type 2 diabetes mellitus: Code(s): E11.9 - Type 2 diabetes mellitus without complications Status: Acute Assessment and Plan: Glucose 209 Accu-Cheks Q6H sliding scale insulin Hold oral medications at this time Trend glucose Adjust therapy as indicated (10) Hyperbilirubinemia: Code(s): E80.6 - Other disorders of bilirubin metabolism Status: Acute Assessment and Plan: Bili 1.3 Continue to trend Probably related to GI bleed GI on board DS: Summary Hospital Course Hospital Course: Patient is a 57-year-old male with a past medical history of alcohol abuse, diabetes, GERD, hyperlipidemia, hypothyroidism who presented to the ED with complaints of coffee ground emesis and melena. GI was consulted and was taken to the GI lab for an endoscopy. It was noted that the patient had esophageal varices x 5, which were all banded. Labs had been trended, and patient started to exhibit pancytopenia with
--- NOTE | 2022-03-25 08:30 | P.DS_ITS ---
DS: Admitting Diagnosis Discharge Date 03/25/22 0830 Admitting Diagnosis Bleeding esophageal varices, acute blood loss anemia, cirrhosis DS: Discharge Diagnosis Discharge Diagnosis (1) Esophageal varices determined by endoscopy: Code(s): I85.00 - Esophageal varices without bleeding Status: Acute Assessment and Plan: * EGD was performed 5 varices banded * GI on board * Trend hemoglobin hematocrit- still improving. * Carafate ordered * DC NSAIDS * ETOH cessations * See below (2) Acute upper GI bleeding: Code(s): K92.2 - Gastrointestinal hemorrhage, unspecified Status: Acute Assessment and Plan: * Complaints of coffee ground emesis and melena * H/H stable at 8.6/26.9 * GI consulted * EGD performed with 5 bandings of varices * Protonix 40mg BID * Trend H/H Q6hr * Transfuse if H/H <7 * Transfused two units of PRBC on 03/22/22 (3) Hypokalemia: Code(s): E87.6 - Hypokalemia Status: Acute Assessment and Plan: * K is 3.2 * 40mcg PO once * Replace as indicated * Trend labs * Labs in the am (4) Pancytopenia: Code(s): D61.818 - Other pancytopenia Status: Acute Assessment and Plan: * WBC are 2.0, RBC 2.84, H/H 8.6/26.9, PLT 71, Neut 43.4- all improved. * Consulted oncology than you for your help * Trend labs * Labs in the am (5) Transaminitis: Code(s): R74.01 - Elevation of levels of liver transaminase levels Status: Acute Assessment and Plan: * AST/ALT/alk phos trending down * RUQ ultrasound showed cirrhosis, no bile duct dilatation or stone * Hep panel negative * GI consulted (6) Hyperthermia: Code(s): R50.9 - Fever, unspecified Status: Acute Assessment and Plan: * Remains afebrile * Temps as high as 102.4, afebrile today. * 03/23 CXR showed Bilateral mid and particularly lower lung zone infiltrates and/atelectasis, increased since 03/21/2022 mild congestive changes. * Incentive spirometry * Seems to be resolving * Trending down, currently 97.9 * Blood, urine cultures show no growth to date. * cefepime and vanco on board, will continue for now. * Continue to trend temperature * Tylenol on board (7) Acute blood loss anemia: Code(s): D62 - Acute posthemorrhagic anemia Status: Acute Assessment and Plan: * H/H uptrending * Secondary to esophageal varices * Continue trend H&H * Anemia labs iron 44, TIBC 375, % sat 12, Ferritin 35.50, B12 383, Folate 10.1 * Adjust therapy as indicated * Transfuse if hemoglobin less than 7 * Ferrous sulfate added * 2 units of PRBC transfused 03/22/22, patient stable since this. (8) Alcohol abuse: Code(s): F10.10 - Alcohol abuse, uncomplicated Status: Acute Assessment and Plan: * WA protocol * Ativan p.r.n. on board * Librium scheduled * Trend for DTs * Adjust therapy as indicated * On thiamine/ folic acid supplementation. (9) Type 2 diabetes mellitus: Code(s): E11.9 - Type 2 diabetes mellitus without complications Status: Acute Assessment and Plan: * Glucose 209 * Accu-Cheks Q6H * sliding scale insulin * Hold oral medications at this time * Trend glucose * Adjust therapy as indicated
[2022-03-25] MEDS: FOLIC ACID 1 MG TABLET PO (09:01)
[2022-03-25] MEDS: FERROUS SULFATE 324 MG TABLET PO (09:01)
[2022-03-25] MEDS: THIAMINE HCL 100 MG TABLET PO (09:01)
[2022-03-25] MEDS: polyethylene glycoL 3350 17 GM POWD.PACK PO (09:01)
[2022-03-25] MEDS: PANTOPRAZOLE 40 MG TABLET PO (09:01)
[2022-03-25] MEDS: CYANOCOBALAMIN 1,000 MCG TABLET 1000 MCG PO (09:01)
[2022-03-25] MEDS: THERAPEUTIC MULTIVITAMINS/MINERALS TAB (*BKC) 1 TABLET PO (09:01)
[2022-03-25] MEDS: POTASSIUM CHLORIDE 20 MEQ TABLET 40 MEQ PO (09:06)
[2022-03-25] MEDS: INSULIN ASPART (*BKC) 100 UNITS/ML SUB-Q ×2 (09:06→11:54)
[2022-03-25 11:21] LABS: Glucose Point of Care 219 mg/dl (65-105)
[2022-03-25 11:58] LABS: Vitamin D 1,25 (OH)2 Total 26 pg/mL (18-72); Vitamin D2 1,25 (OH)2 <8 pg/mL; Vitamin D3 1,25 (OH)2 26 pg/mL
[2022-03-25 12:56] LABS: LKM 1 Antibody <=20.0 U (<=20.0)
[2022-03-25 13:03] LABS: HIV DNA PCR (Qual) Not Detected (Not Detected)
[2022-03-25 13:07] LABS: Mitochondrial (M2) Ab (IgG) <=20.0 U (<=20.0)
[2022-03-25 14:23] LABS: Hepatitis A Antibody Total Nonreactive (Nonreactive); Hepatitis B Core Ab Total Nonreactive (Nonreactive)
[2022-03-25 14:57] VITALS: BP 128/46; PULSE 78; RESP 16; TEMP 36.8; O2SAT 98
[2022-03-25 16:38] LABS: HIV 1 RNA PCR Not Detected Copies/mL; HIV 1 RNA PCR Not Detected Log cps/mL
[2022-03-27 16:01] LABS: Alpha Fetoprotein Tumor Marker 3.3 ng/mL (<6.1)
== END 2022-03-25 16:45 | disposition home or self-care (01) | DRG 432 ==
LOC: ANHED 03-21 01:20 → ANHIMU 03-21 01:45 → ANH2MED 03-23 15:42
PROVIDERS: Internal Medicine Gastroenterology; Student in an Organized Health Care Education/Training Program; Admitting Provider Student in an Organized Health Care Education/Training Program; Emergency Provider Emergency Medicine; Visit Provider Nurse Practitioner
PROC: 0DP08DZ Removal of Intraluminal Device from Upper Intestinal Tract, Via Natural or Artificial Opening Endoscopic (ICD-10-PCS; CPT 43247; principal; 2022-03-21 09:00)
DX: K70.30 Alcoholic cirrhosis of liver without ascites (principal); I85.11 Secondary esophageal varices with bleeding; K76.6 Portal hypertension; D62 Acute posthemorrhagic anemia; D61.818 Other pancytopenia; D73.1 Hypersplenism; K31.89 Other diseases of stomach and duodenum; K29.20 Alcoholic gastritis without bleeding; K31.7 Polyp of stomach and duodenum; R50.9 Fever, unspecified; K70.10 Alcoholic hepatitis without ascites; E87.6 Hypokalemia; E80.6 Other disorders of bilirubin metabolism; E11.65 Type 2 diabetes mellitus with hyperglycemia; F10.10 Alcohol abuse, uncomplicated; K21.9 Gastro-esophageal reflux disease without esophagitis; E78.5 Hyperlipidemia, unspecified; R74.01 Elevation of levels of liver transaminase levels; E03.9 Hypothyroidism, unspecified; E66.9 Obesity, unspecified; Z68.31 Body mass index [BMI] 31.0-31.9, adult; Z79.84 Long term (current) use of oral hypoglycemic drugs; Z79.899 Other long term (current) drug therapy
CPT/HCPCS: 36415; 36430; 36600; 71045; 74176; 76705; 80048; 80053; 80061; 80074; 80076; 80202; 80307; 82103; 82105; 82140; 82248; 82375; 82390; 82607; 82652; 82728; 82746; 82805; 82948; 83050; 83520; 83540; 83550; 83605; 83615; 83735; 84100; 84436; 84443; 85014; 85018; 85025; 85027; 85055; 85610; 85652; 85730; 86038; 86376; 86703; 86704; 86706; 86708; 86850; 86900; 86901; 86920; 87040; 87081; 87086; 87340; 87535; 87536; 96365; 96366; 96368; 96375; 99285; A9270; C9113; G0378; G0432; J0131; J0171; J0692; J0696; J1815; J2354; J2704; J2765; J3370; J3480; J7030; J7040; J7050; J7060; J7120; P9016

== ENCOUNTER 2023-02-18 11:30 | Inpatient (IN) | payer OTHER, SELFPAY ==
[2023-02-18] VITALS (14 sets, daily range): BP systolic 132–156; BP diastolic 54–75; PULSE 78–106; RESP 15–21; TEMP 36.6–37.3; O2SAT 97–100; BMI 29.3
[2023-02-18 12:11] LABS: Basophils Absolute Auto 0.1 K/mm3 (0.0-0.1); Basophils Percent Auto 0.6 % (0.2-1.2); Eosinophils Percent Auto 0.2 % (0-4.4); Hematocrit 25.1 % (42.0-52.0); Hemoglobin 8.4 g/dL (14.0-18.0); Immature Granulocyte Absolute 0.13 K/mm3 (0.00-0.031); Immature Granulocyte Percent A 1.4 % (0-0.5); Lymphocytes Absolute Auto 2.14 K/mm3 (0.9-3.2); Lymphocytes Percent Auto 23.6 % (18.3-44.2); Mean Corpuscular HGB Conc 33.5 g/dl (32-36); Mean Corpuscular Hemoglobin 30.4 pg (26-34); Mean Corpuscular Volume 90.9 fl (80-100); Mean Platelet Volume 10.1 fl (7.4-10.4); Monocytes Absolute Auto 0.5 K/mm3 (0.1-0.6); Neutrophils Absolute Auto 6.2 K/mm3 (1.3-6.7); Neutrophils Percent Auto 68.2 % (45.5-73.1); Nucleated Red Blood Cells Perc 0.2 % (0.0-0.2); Platelet Count Result 158 k/mm3 (150-375); Red Blood Count 2.76 M/mm3 (4.6-6.20); Red Cell Distribution Width 17.9 % (11.5-14.5); White Blood Count 9.1 K/mm3 (4.5-10.0)
[2023-02-18 12:23] LABS: INR 1.4; Prothrombin Time 17.5 Seconds (11.1-14.7)
[2023-02-18 12:24] LABS: Partial Thromboplastin Time 30.9 SECONDS (22.3-36.8)
[2023-02-18 12:26] LABS: Alanine Aminotransferase 32 U/L (6-50); Albumin Level 3.4 g/dL (3.5-5.1); Alkaline Phosphatase 79 U/L (38-126); Anion Gap 14 mmol/L (8-16); Aspartate Amino Transferase 33 U/L (17-59); Blood Urea Nitrogen 32 mg/dL (9-20); Calcium 8.3 mg/dL (8.4-10.2); Carbon Dioxide 16 mmol/L (22-30); Chloride 100 mmol/L (98-107); Estimated CRCL calculation 109 ml/min; Estimated Glomerular Filt Rate > 60; Glucose 404 mg/dL (65-110); Potassium 4.9 mmol/L (3.4-5.0); Sodium 130 mmol/L (137-145)
--- NOTE | 2023-02-18 13:48 | ED.GIBLEED ---
HPI - GI Bleed General Chief complaint: GI Bleed Stated complaint: tarry stools Time Seen by Provider: 02/18/23 13:04 History of Present Illness HPI Narrative: Patient is a 57-year-old male with a history of cirrhosis, esophageal varices status post banding presenting with GI bleed. Patient states that yesterday afternoon he had large-volume coffee-ground emesis. States that he filled half of the trash can. States that he started feeling lightheaded with standing after this. This morning he woke up and had black diarrhea. States this is similar to an episode of GI bleeding that he had about a year ago that required esophageal banding. Patient currently denies any complaints. States that he no longer drinks alcohol. Denies any pain. Denies nausea. Related Data Home Medications Medication Instructions Recorded Confirmed escitalopram oxalate 20 mg tablet 20 tablet PO DAILY 03/21/22 02/18/23 ezetimibe 10 mg tablet 10 mg DAILY 02/18/23 02/18/23 Allergies Allergy/AdvReac Type Severity Reaction Status Date / Time No Known Allergies Allergy Verified 02/19/23 10:59 Review of Systems Review of Systems: All systems reviewed & are unremarkable except as noted in HPI and below PMFSH Past Medical History Medical History (Updated 02/21/23 @ 00:12 by Georgette Leonard MD) Alcoholic cirrhosis Esophageal varices Gastroesophageal reflux disease Hypothyroidism Portal hypertensive gastropathy Thrombocytopenia Type 2 diabetes mellitus Surgical History Surgical History (Updated 02/18/23 @ 14:58 by Bridgett Bradshaw PA-C) History of esophagogastroduodenoscopy (02/2022) Family History Family History Father Hypertension Mother Breast cancer Social History Social History (Updated 02/18/23 @ 19:58 by Bridgett Bradshaw PA-C) Social History: Surrogate medical decision maker: Marino Shelton, partner. Code status: Full code. Smoking status: Never smoker Second hand tobacco smoke exposure: No Alcohol intake: former Alcohol use details: History of alcohol abuse, abstained since February 2022. Substance use: never Substance use type: does not use Lack of Transportation: No Lack of Food: Never True Current Housing: I Have Housing Concerned About Future Housing: No Difficulty Paying Gas/Electric Bills: No Difficulty Paying for Meds: No Currently Unemployed: No Education: Bachelor's Degree Difficulty w/ Childcare or Family Care: No Additional living arrangements comments: Lives with partner half of the year in this area and half of the year [place]. 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 Spiritual care concerns: No Agree to blood products: Yes Exam Narrative: GENERAL: Nontoxic, in no acute distress, appears pale HEAD: Normocephalic, atraumatic. EYES: PERRLA and EOMI. ENT: Nares clear, no rhinorrhea or epistaxis. Mucous membranes moist. NECK: Supple. CHEST: Clear to auscultation. No respiratory distress. HEART: Regular rate and rhythm. Normal peripheral pulses. ABDOMEN: Soft, nontender, nondistended, normal active bowel sounds. EXTREMITIES: Normal range of motion. No edema. SKIN: Warm, dry, no rash. NEURO: No focal deficits. Alert and oriented x3. PSYCH: Normal mood and affect. Course Vital Signs Vital signs: Vital Signs Temperature 97.8 F 02/18/23 11:57 Pulse Rate 106 H 02/18/23 11:57 Respiratory Rate 20 02/18/23 11:57 Blood Pressure 132/65 02/18/23 11:57 Pulse Oximetry 99 02/18/23 11:57 Oxygen Delivery Room Air 02/18/23 11:57 Temperature 98.9 F 02/20/23 23:06 Pulse Rate 75 02/20/23 23:06 Respiratory Rate 20 02/20/23 23:06 Blood Pressure 129/56 L 02/20/23 23:06 Pulse Oximetry 100 02/20/23 23:06 Oxygen Delivery Room Air 02/20/23 16:00 MDM - GI Bleed MDM Narrative Medical decision making narrative: Patient is a 57-year-old ma
[2023-02-18] MEDS: PANTOPRAZOLE SODIUM IV 80 MG in SODIUM CHLORIDE 0.9% IV 500 ML 50 MG IV CONT (14:24)
--- NOTE | 2023-02-18 14:46 | PM.IMHP ---
H&P: HPI History of Present Illness Date/Time: 02/18/23 16:00 Chief Complaint: Coffee-ground emesis. Narrative: This is a very pleasant 57-year-old male with hypertension, dyslipidemia, type 2 diabetes mellitus, and cirrhosis with history of esophageal varices and variceal bleeding who presented to the emergency department via private vehicle from home for evaluation of coffee-ground emesis. The patient provides the following history. He quit drinking in February 2022 after being diagnosed with alcoholic cirrhosis and bleeding esophageal varices. He was feeling fine when he got up yesterday morning. Sometime in the afternoon he had a sudden urge to have a bowel movement and he passed a dark black, loose stool. He started to feel nauseated at that time and he reportedly vomited up a large amount of coffee-ground emesis and he ?filled half of a trash can.? This morning when he woke up he had a normal bowel movement but it was charcoal black. He decided come in as he was feeling weak and lightheaded thereafter. He denies fever, chills, sweats, epigastric and abdominal pain, chest pain, shortness a breath. Vital signs were stable on arrival to the emergency department. Pertinent labs include a hemoglobin and hematocrit of 8.4 and 25.1% respectively, PT 17.5, INR 1.9, PTT 30.9, sodium 130, carbon dioxide 16, BUN 32, creatinine 1.09, total bilirubin 3.0, AST 33, ALT 32, alkaline phosphatase 79. He has been started on pantoprazole and octreotide drips and he is being admitted in this setting for close monitoring and GI consultation. Review of Systems Review of Systems: Twelve systems were reviewed and are negative except for as per HPI. [facility] Past Medical History Medical History (Updated 02/18/23 @ 14:58 by Bridgett Bradshaw PA-C) Alcoholic cirrhosis Esophageal varices Gastroesophageal reflux disease Hypothyroidism Portal hypertensive gastropathy Type 2 diabetes mellitus Surgical History Surgical History (Updated 02/18/23 @ 14:58 by Bridgett Bradshaw PA-C) History of esophagogastroduodenoscopy (02/2022) Family History Family History Father Hypertension Mother Breast cancer Social History Social History (Updated 02/18/23 @ 19:58 by DEE Leach Social History: Surrogate medical decision maker: Marino Shelton, partner. Code status: Full code. Smoking status: Never smoker Second hand tobacco smoke exposure: No Alcohol intake: former Alcohol use details: History of alcohol abuse, abstained since February 2022. Substance use: never Substance use type: does not use Lack of Transportation: No Lack of Food: Never True Current Housing: I Have Housing Concerned About Future Housing: No Difficulty Paying Gas/Electric Bills: No Difficulty Paying for Meds: No Currently Unemployed: No Education: Bachelor's Degree Difficulty w/ Childcare or Family Care: No Additional living arrangements comments: Lives with partner half of the year in this area and half of the year [place]. 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 Spiritual care concerns: No Agree to blood products: Yes Meds Home Medications and Allergies Home Medications Medication Instructions Recorded Confirmed Type escitalopram oxalate 20 mg tablet 20 tablet PO DAILY 03/21/22 02/18/23 History ezetimibe 10 mg tablet 10 mg DAILY 02/18/23 02/18/23 History Allergies Allergy/AdvReac Type Severity Reaction Status Date / Time No Known Allergies Allergy Verified 02/18/23 12:52 Vital Signs Vital Signs - 24 hr 02/18/23 11:57 02/18/23 13:30 02/18/23 12:45 Temperature 97.8 F Pulse Rate 106 H 105 H 102 H Respiratory Rate 20 16 16 Blood Pressure 132/65 147/71 H 137/74 Pulse Oximetry 99 100 98 Oxygen Delivery Room Air Exam Narrative: General: Mildly ill, nontoxic-appearing male in the semi-Alcantara position in bed. Weight:
--- NOTE | 2023-02-18 18:46 | PC.NURSE ---
pt was admitted to room 211 from ED at 1740 with all personal belongings and call light in reach
[2023-02-18 20:40] LABS: Hemoglobin 7.9 g/dL (14.0-18.0)
[2023-02-18 20:48] LABS: Anion Gap 13 mmol/L (8-16); Blood Urea Nitrogen 35 mg/dL (9-20); Calcium 8.1 mg/dL (8.4-10.2); Carbon Dioxide 17 mmol/L (22-30); Chloride 101 mmol/L (98-107); Estimated CRCL calculation 109 ml/min; Estimated Glomerular Filt Rate > 60; Glucose 386 mg/dL (65-110); Magnesium 2.2 mg/dL (1.6-2.3); Potassium 4.5 mmol/L (3.4-5.0); Sodium 131 mmol/L (137-145)
[2023-02-18 20:54] LABS: Glucose Point of Care 405 mg/dl (65-105)
[2023-02-18] MEDS: INSULIN ASPART (*BKC) 100 UNITS/ML 8 UNITS SUB-Q (21:30)
[2023-02-18 21:35] LABS: Hemoglobin A1C 9.8 % (<5.7)
[2023-02-19] VITALS (23 sets, daily range): BP systolic 123–159; BP diastolic 44–65; PULSE 80–100; RESP 16–25; TEMP 36.4–37.2; O2SAT 94–100
[2023-02-19] MEDS: PANTOPRAZOLE SODIUM IV 80 MG in SODIUM CHLORIDE 0.9% IV 500 ML 50 MG IV CONT (00:30)
[2023-02-19 03:08] LABS: Hematocrit 21.2 % (42.0-52.0); Mean Corpuscular HGB Conc 32.5 g/dl (32-36); Mean Corpuscular Hemoglobin 29.6 pg (26-34); Mean Platelet Volume 10.6 fl (7.4-10.4); Platelet Count Result 117 k/mm3 (150-375); Red Blood Count 2.33 M/mm3 (4.6-6.20); Red Cell Distribution Width 18.2 % (11.5-14.5); White Blood Count 7.3 K/mm3 (4.5-10.0)
[2023-02-19 03:22] LABS: Alanine Aminotransferase 29 U/L (6-50); Albumin Level 3.2 g/dL (3.5-5.1); Alkaline Phosphatase 74 U/L (38-126); Anion Gap 7 mmol/L (8-16); Aspartate Amino Transferase 28 U/L (17-59); Bilirubin,Total 1.6 mg/dL (0.2-1.3); Blood Urea Nitrogen 37 mg/dL (9-20); Calcium 8.2 mg/dL (8.4-10.2); Carbon Dioxide 23 mmol/L (22-30); Chloride 103 mmol/L (98-107); Estimated CRCL calculation 97 ml/min; Estimated Glomerular Filt Rate > 60; Glucose 348 mg/dL (65-110); Potassium 3.9 mmol/L (3.4-5.0); Sodium 133 mmol/L (137-145)
[2023-02-19 03:32] LABS: Hemoglobin 6.9 g/dL (14.0-18.0)
[2023-02-19 03:41] LABS: INR 1.4; Prothrombin Time 17.5 Seconds (11.1-14.7)
[2023-02-19 03:43] LABS: Partial Thromboplastin Time 31.8 SECONDS (22.3-36.8)
[2023-02-19] MEDS: SODIUM CHLORIDE 0.9% IV 250 ML 30 ML IV CONT (04:45)
[2023-02-19] MEDS: TUBING, BLOOD PLUM PUMP TUBING 1 EACH XX (05:08)
[2023-02-19 09:27] LABS: Glucose Point of Care 362 mg/dl (65-105)
[2023-02-19] MEDS: INSULIN ASPART (*BKC) 100 UNITS/ML SUB-Q ×2 (10:50→17:12)
--- NOTE | 2023-02-19 11:01 | WPDGICN ---
Assessment and Plan Assessment and plan (1) Upper GI bleed: Code(s): K92.2 - Gastrointestinal hemorrhage, unspecified Status: Acute Assessment and Plan: will proceed with urgent egd already on iv octreotide, protonix probably EV bleeding again (2) Acute blood loss anemia: Code(s): D62 - Acute posthemorrhagic anemia Status: Acute Assessment and Plan: getting blood transfusion monitor for more sgins of bleeding (3) Alcoholic cirrhosis: Code(s): K70.30 - Alcoholic cirrhosis of liver without ascites Status: Acute Assessment and Plan: not longer drinking he has his doctors back in [place], will need close follow-up (4) Esophageal varices: Code(s): I85.00 - Esophageal varices without bleeding Status: Acute Assessment and Plan: on treatment egd now (5) Type 2 diabetes mellitus with hyperglycemia: Code(s): E11.65 - Type 2 diabetes mellitus with hyperglycemia Status: Acute (6) Transaminitis: Code(s): R74.01 - Elevation of levels of liver transaminase levels Status: Acute (7) Thrombocytopenia: Code(s): D69.6 - Thrombocytopenia, unspecified Status: Acute Assessment and Plan: monitor GI Consult Note Consult date/time: 02/19/23 11:01 Reason for consult: cirrhosis, coffee ground emesis HPI: Nabeel Elias is a 57 year old male with hypertension, dyslipidemia, type 2 diabetes mellitus, and alcoholic cirrhosis (quit drinking 02/2022 after he was admitted here with GIB due to esophageal varices that required banding). He had repeat EGD with colonoscopy about 6 months ago in [place] where he lives. He is here visiting family and is going back home in 2-3 weeks. He is here after noted large tarry stool then had n/v with coffee ground material. Blood work hemoglobin and hematocrit of 8.4 and 25.1% respectively (hb down to 6.9), PT 17.5, INR 1.9, PTT 30.9, sodium 130, carbon dioxide 16, BUN 32, creatinine 1.09, total bilirubin 3.0, AST 33, ALT 32, alkaline phosphatase 79. He is now receiving blood transfusion, on iv protonix and octreotide. Review of Systems Constitutional: Constitutional: Reports fatigue Eyes: Eyes: Denies blurry vision ENT: Reports Normal hearing present Cardiovascular: Cardiovascular: Denies chest pain Respiratory: Respiratory: Denies cough Gastrointestinal: Gastrointestinal: Reports melena, Reports nausea and Reports vomiting Genitourinary: Genitourinary: Denies hematuria Musculoskeletal: Musculoskeletal: Denies back pain Integumentary/Breasts: Skin/Breast: Denies rash Neurologic: Denies Abnormal speech present Psychiatric: Psychiatric: Denies behavioral changes [facility] Past Medical History Medical History (Updated 02/19/23 @ 11:28 by Vasquez Clayton MD) Alcoholic cirrhosis Esophageal varices Gastroesophageal reflux disease Hypothyroidism Portal hypertensive gastropathy Thrombocytopenia Type 2 diabetes mellitus Surgical History Surgical History (Updated 02/18/23 @ 14:58 by Bridgett Bradshaw PA-C) History of esophagogastroduodenoscopy (02/2022) Family History Family History Father Hypertension Mother Breast cancer Social History Social History (Updated 02/18/23 @ 19:58 by Bridgett Bradshaw PA-C) Social History: Surrogate medical decision maker: Marino Shooknoelle, partner. Code status: Full code. Smoking status: Never smoker Second hand tobacco smoke exposure: No Alcohol intake: former Alcohol use details: History of alcohol abuse, abstained since February 2022. Substance use: never Substance use type: does not use Lack of Transportation: No Lack of Food: Never True Current Housing: I Have Housing Concerned About Future Housing: No Difficulty Paying Gas/Electric Bills: No Difficulty Paying for Meds: No Currently Unemployed: No Education: Bachelor's Degree
[2023-02-19] MEDS: LACTATED RINGERS 1,000 ML 150 ML IV CONT (11:03)
[2023-02-19 11:08] LABS: Glucose Point of Care 334 mg/dl (65-105)
--- NOTE | 2023-02-19 11:15 | WPDANESEPPF ---
Anes - Initial Pre Proc Eval Procedure: Operation Date: 02/19/23 14:15 Proposed Procedures p Esophagogastroduodenoscopy - Vasquez Clayton MD Date/Time: 02/19/23 11:15 Surgeon: Lacy Callahan MD Pre Op Diagnosis: GI Bleed Patient Data Age: 57 Gender: M Height: 1.91 m Weight: 103 kg Last Vital Signs Temp 36.6 C 02/19/23 11:01 Pulse 87 02/19/23 11:01 Resp 20 02/19/23 11:01 BP 139/65 02/19/23 11:01 Pulse Ox 98 02/19/23 11:01 O2 Del Method Room Air 02/19/23 11:01 Allergies Allergy/AdvReac Type Severity Reaction Status Date / Time No Known Allergies Allergy Verified 02/19/23 10:59 Home Medications Medication Instructions Recorded Confirmed Type escitalopram oxalate 20 mg tablet 20 tablet PO DAILY 03/21/22 02/18/23 History ezetimibe 10 mg tablet 10 mg DAILY 02/18/23 02/18/23 History Laboratory Tests 02/18/23 02/18/23 02/18/23 12:03 20:08 20:09 WBC 9.1 K/mm3 (4.5-10.0) RBC 2.76 L M/mm3 (4.6-6.20) Hgb 8.4 L g/dL 7.9 L g/dL (14.0-18.0) (14.0-18.0) Hct 25.1 L % 23.0 L % (42.0-52.0) (42.0-52.0) MCV 90.9 fl (80-100) MCH 30.4 pg (26-34) MCHC 33.5 g/dl (32-36) RDW 17.9 H % (11.5-14.5) Plt Count 158 D k/mm3 (150-375) MPV 10.1 fl (7.4-10.4) Immature Gran % (Auto) 1.4 H % (0-0.5) Neut % (Auto) 68.2 % (45.5-73.1) Lymph % (Auto) 23.6 % (18.3-44.2) [place] % (Auto) 6.0 % (2.6-8.5) Eos % (Auto) 0.2 % (0-4.4) Baso % (Auto) 0.6 % (0.2-1.2) Lymph # (Auto) 2.14 K/mm3 (0.9-3.2) [place] # (Auto) 0.5 K/mm3 (0.1-0.6) Eos # (Auto) 0.0 K/mm3 (0-0.3) Baso # (Auto) 0.1 K/mm3 (0.0-0.1) Abs Immat Gran (auto) 0.13 H K/mm3 (0.00-0.031) Absolute Neuts (auto) 6.2 K/mm3 (1.3-6.7) Absolute Nucleated RBC 0.0 K/mm3 (0.0-0.012) Nucleated RBC % 0.2 % (0.0-0.2) PT 17.5 H Seconds (11.1-14.7) INR 1.4 APTT 30.9 SECONDS (22.3-36.8) Sodium 130 L mmol/L 131 L mmol/L (137-145) (137-145) Potassium 4.9 mmol/L 4.5 mmol/L (3.4-5.0) (3.4-5.0) Chloride 100 mmol/L 101 mmol/L (98-107) (98-107) Carbon Dioxide 16 L mmol/L 17 L mmol/L (22-30) (22-30) Anion Gap 14 mmol/L 13 mmol/L (8-16) (8-16) BUN 32 H D mg/dL 35 H mg/dL (9-20) (9-20) Creatinine 0.80 mg/dL 0.80 mg/dL (0.7-1.3) (0.7-1.3) Estim Creat Clear Calc 109 ml/min 109 ml/min Estimated GFR > 60 > 60 (59 - ) (59 - ) Glucose 404 H mg/dL 386 H mg/dL (65-110) (65-110) POC Capillary Glucose Hemoglobin A1c 9.8 H % (<5.7) Calcium 8.3 L mg/dL 8.1 L mg/dL (8.4-10.2) (8.4-10.2) Magnesium 2.2 mg/dL (1.6-2.3) Total Bilirubin 3.0 H mg/dL (0.2-1.3) AST 33 U/L (17-59) ALT 32 U/L (6-50) Alkaline Phosphatase 79 U/L (38-126) Total Protein 6.0 L g/dL (6.3-8.2) Albumin 3.4 L g/dL (3.5-5.1) TSH (Reflex) 1.620 uIU/mL (0.465-4.68) Blood Type O Negative Antibody Screen Negative Crossmatch See Detail 02/18/23 02/19/23 02/19/23 20:52 02:28 02:28 WBC 7.3 K/mm3 (4.5-10.0) RBC 2.33 L M/mm3 (4.6-6.20) Hgb 6.9 L* g/dL Cancelled (14.0-18.0) Hct 21.2 L % (42.0-52.0) MCV MCH MCHC RDW Plt Count MPV Immature Gran % (Auto) Neut % (Auto) Lymph % (Auto) [place] % (Auto) Eos % (Auto) Baso % (Auto) Lymph # (Auto) [place] # (Auto) Eos # (Auto) Baso # (Auto) Abs Immat G
[2023-02-19 12:13] LABS: Glucose Point of Care 319 mg/dl (65-105)
[2023-02-19 12:27] LABS: Glucose Point of Care 317 mg/dl (65-105)
[2023-02-19] MEDS: INSULIN ASPART (*BKC) 100 UNITS/ML 10 UNITS SUB-Q (12:40)
--- NOTE | 2023-02-19 12:50 | PM.IMPN ---
Progress Note: A&P Assessment and Plan (1) Upper GI bleed: Code(s): K92.2 - Gastrointestinal hemorrhage, unspecified Status: Acute Assessment and Plan: Patient has signs of upper GI bleeding including hematemesis and melena as per HPI. Concerns are for possible variceal bleeding given history of the same. GI has been consulted. Continue octreotide and pantoprazole drips. He has been started on ceftriaxone 2 g daily. NPO after midnight for EGD tomorrow per Dr. Clayton. (2) Anemia: Code(s): D64.9 - Anemia, unspecified Status: Acute Assessment and Plan: Hemoglobin and hematocrit are stable compared to labs done in February 2022 however patient tells me that his anemia improved to near normal levels following the hospitalization. Drop is most certainly due to acute blood loss from the above. Hemoglobin hematocrit will be trended and he will be transfused if indicated. (3) Type 2 diabetes mellitus with hyperglycemia: Code(s): E11.65 - Type 2 diabetes mellitus with hyperglycemia Status: Acute Assessment and Plan: Previously on glipizide though he has not had that filled since July 2022. Random glucose today is 404. Initiate sliding scale insulin, Accu-Cheks, and hypoglycemic protocol. Check hemoglobin A1c. He will likely need to be started back on medication on discharge. (4) Hyperbilirubinemia: Code(s): E80.6 - Other disorders of bilirubin metabolism Status: Acute Assessment and Plan: Bilirubin is 3.0, the remainder of his LFTs are within normal limits. Likely due to chronic liver disease. Abdominal exam is benign. (5) Alcoholic cirrhosis: Code(s): K70.30 - Alcoholic cirrhosis of liver without ascites Status: Acute Assessment and Plan: Patient has abstained from alcohol since his diagnosis in February 2022. (6) Gastroesophageal reflux disease: Code(s): K21.9 - Gastro-esophageal reflux disease without esophagitis Status: Acute Assessment and Plan: Currently on pantoprazole drip. (7) Hypothyroidism: Code(s): E03.9 - Hypothyroidism, unspecified Status: Acute Assessment and Plan: History of such, not currently on levothyroxine. Check TSH. Plan Medical decision making narrative ? History obtained from: Patient. ? History from independent sources: None. ? External chart review: Visit from February 2022 reviewed. ? New problems addressed: Upper GI bleed. ? Chronic illnesses addressed: Diabetes, alcoholic cirrhosis. ? Independent interpretation of studies: Labs, imaging, EKG, and all reports were personally reviewed. ? Diagnostic tests considered but not ordered: None. ? Shared decision making: Findings were reviewed and discussed with the patient, including plans for further workup and treatment options. Questions solicited and answered to satisfaction. Patient agrees with current plan of care. 02/19/2023 Plan is to continue with blood transfusion and monitor closely. Consults noted. Subjective Date/time seen: 02/19/23 12:50 Patient was seen during the rounds today. Getting blood, no sob or chest pain. Review of Systems Review of Systems: Twelve systems were reviewed and are negative except for as per HPI. Exam Narrative: General: Mildly ill, nontoxic-appearing male in the semi-Alcantara position in bed. Weight: 106.4 kg. BMI: 29.3. HEENT: PERRL, EOMI. Sclera anicteric. Tacky mucous membranes. Neck: Supple. Respiratory: Lungs are clear to auscultation bilaterally. Cardiovascular: Regular rate and rhythm with S1-S2. Gastrointestinal: Abdomen is soft, nontender, and nondistended with positive bowel sounds. No guarding or rebound tenderness. Skin: Warm and dry. Slightly pale. Extremities: No cyanosis, clubbing, or edema. Radial and pedal pulses intact. Neurological: Alert. Cranial nerves 2-12 are grossly intact. No gross focal deficits to casual conversation
[2023-02-19 16:19] LABS: Glucose Point of Care 343 mg/dl (65-105)
[2023-02-19 17:34] LABS: Hematocrit 27.5 % (42.0-52.0); Hemoglobin 9.1 g/dL (14.0-18.0)
[2023-02-19 20:16] LABS: Glucose Point of Care 284 mg/dl (65-105)
[2023-02-19] MEDS: PANTOPRAZOLE SODIUM IV 40 MG VIAL IV PUSH (20:43)
[2023-02-20] VITALS (16 sets, daily range): BP systolic 100–137; BP diastolic 44–63; PULSE 69–82; RESP 16–20; TEMP 35.6–37.2; O2SAT 96–100
[2023-02-20 07:55] LABS: Glucose Point of Care 316 mg/dl (65-105)
[2023-02-20] MEDS: INSULIN ASPART (*BKC) 100 UNITS/ML SUB-Q ×3 (09:13→17:13)
[2023-02-20] MEDS: PANTOPRAZOLE SODIUM IV 40 MG VIAL IV PUSH ×2 (09:18→20:48)
--- NOTE | 2023-02-20 09:28 | WPDGIPROGNO ---
Progress Note: A&P Assessment and Plan (1) Alcoholic cirrhosis: Code(s): K70.30 - Alcoholic cirrhosis of liver without ascites Status: Acute Assessment and Plan: Patient with known alcoholic cirrhosis of liver. Admitted yesterday with upper GI bleeding. Found to have bleeding esophageal varices which were banded. Plan to complete 3 days of octreotide. May start tapering off later today or tomorrow. After discharge anticipate being on low-dose preventative beta valorie. Patient currently on pantoprazole. Will allow liquid diet and advance as tolerated. Continue to monitor hemoglobin closely. As we increase activity. (2) Esophageal varices: Code(s): I85.00 - Esophageal varices without bleeding Status: Acute Assessment and Plan: Status post banding at the time of EGD on 02/20/2023. Patient will need follow-up EGD to consider additional banding in 4-8 weeks. He currently follows with Gastroenterology in [place] and will need to be reestablished with them after discharge. (3) Type 2 diabetes mellitus with hyperglycemia: Code(s): E11.65 - Type 2 diabetes mellitus with hyperglycemia Status: Acute (4) Pancytopenia: Code(s): D61.818 - Other pancytopenia Status: Acute Subjective Date/time seen: 02/20/23 09:28 Interval history: Patient alert comfortable today. Tolerating liquid diet. No signs of additional bleeding. Patient denies abdominal pain. Comfortable at rest. Review of Systems Review of Systems: Review of systems noncontributory. Exam Narrative: Physical exam reveals patient be alert. Vital signs stable. Sitting upright bed. Tolerating diet. Lungs are clear. Heart without murmur. Abdomen bowel sounds are present soft nontender with no organomegaly. Objective Data Vital Signs Vital Signs: Vital Signs - 24 hr 02/19/23 10:45 02/19/23 11:01 02/19/23 11:00 Temperature 98.5 F 97.9 F 97.9 F Pulse Rate 86 87 87 Respiratory Rate 20 20 20 Blood Pressure 148/53 H 139/65 139/65 Pulse Oximetry 99 98 98 Oxygen Delivery Room Air 02/19/23 11:44 02/19/23 11:54 02/19/23 12:04 Temperature Pulse Rate 86 85 82 Respiratory Rate 25 H 24 H 17 Blood Pressure 123/53 L 146/53 H 145/57 H Pulse Oximetry 98 96 95 Oxygen Delivery Room Air Room Air Room Air 02/19/23 12:00 02/19/23 13:00 02/19/23 12:00 Temperature 98.0 F 98.4 F 98.0 F Pulse Rate 80 82 80 Respiratory Rate 20 16 20 Blood Pressure 154/59 H 147/56 H 154/59 H Pulse Oximetry 99 100 99 Oxygen Delivery 02/19/23 13:00 02/19/23 14:00 02/19/23 16:00 Temperature 98.4 F 98.8 F 97.7 F Pulse Rate 82 86 80 Respiratory Rate 16 16 16 Blood Pressure 147/56 H 149/61 H 148/59 H Pulse Oximetry 100 99 99 Oxygen Delivery 02/19/23 10:00 02/19/23 14:00 02/19/23 16:00 Temperature Pulse Rate 83 87 82 Respiratory Rate Blood Pressure Pulse Oximetry Oxygen Delivery 02/19/23 18:00 02/19/23 12:30 02/19/23 16:00 Temperature Pulse Rate 80 Respiratory Rate Blood Pressure Pulse Oximetry Oxygen Delivery Room Air Room Air 02/19/23 20:00 02/19/23 20:00 02/19/23 20:00 Temperature 98.9 F Pulse Rate 92 82 Respiratory Rate 16 Blood Pressure 150/47 H Pulse Oximetry 94 Oxygen Delivery Room Air 02/19/23 22:00 02/20/23 00:00 02/20/23 00:00 Temperature 98.0 F Pulse Rate 96 82 77 Respiratory Rate 16 Blood Pressure 137/60 Pulse Oximetry 96 Oxygen Delivery 02/20/23 01:58 02/20/23 04:00 02/20/23 04:00 Temperature 97.6 F Pulse Rate 79 73 Respiratory Rate 18 Blood Pressure 122/53 L Pulse Oximetry 98 Oxygen Delivery Room Air 02/20/23 04:00 02/20/23 06:00 02/20/23 08:04 Temperature 96.1 F L Pulse Rate 71 69 73 Respiratory Rate 20 Blood Pressure 100/44 L Pulse Oximetry 97 Oxygen Delivery Intake/Output Intake/Output: Intake & Output 02/17/23 02/18/23 02/19/23 02/20/23 2
--- NOTE | 2023-02-20 10:43 | PM.IMPN ---
Progress Note: A&P Assessment and Plan (1) Upper GI bleed: Code(s): K92.2 - Gastrointestinal hemorrhage, unspecified Status: Acute Assessment and Plan: Patient has signs of upper GI bleeding including hematemesis and melena as per HPI. Continue octreotide 3 days. Monitor H/H 02/20 lab still pending due to difficult draw (2) Anemia: Code(s): D64.9 - Anemia, unspecified Status: Acute Assessment and Plan: F/u H/h (3) Type 2 diabetes mellitus with hyperglycemia: Code(s): E11.65 - Type 2 diabetes mellitus with hyperglycemia Status: Acute Assessment and Plan: FBS 02/20 316 so added Lantus 25 u Continue sliding scale (4) Hyperbilirubinemia: Code(s): E80.6 - Other disorders of bilirubin metabolism Status: Acute Assessment and Plan: Bilirubin is 3.0, the remainder of his LFTs are within normal limits. Likely due to chronic liver disease. (5) Alcoholic cirrhosis: Code(s): K70.30 - Alcoholic cirrhosis of liver without ascites Status: Acute Assessment and Plan: Patient has abstained from alcohol since his diagnosis in February 2022. (6) Gastroesophageal reflux disease: Code(s): K21.9 - Gastro-esophageal reflux disease without esophagitis Status: Acute Assessment and Plan: Currently on pantoprazole Plan TSH was NL. NOT hypothyroid Subjective Date/time seen: 02/20/23 10:43 Interval history: Tired after EGD with banding of varices yesterday. Otherwise no complaints of chest or abdominal pain. Has not had a stool suggested. No urinary difficulties. No to resources of breath. Tolerating liquids. Review of Systems Review of Systems: All systems reviewed & are unremarkable except as noted in HPI and below Exam Narrative: General: Middle-aged gentleman in NAD HEENT:. Sclera anicteric. Tacky mucous membranes. Neck: No JVD Respiratory: Lungs are clear to auscultation bilaterally. Cardiovascular: Regular rate and rhythm with S1-S2. Gastrointestinal: Abdomen is soft, nontender, and nondistended with positive bowel sounds. No guarding or rebound tenderness. Skin: Warm and dry. Slightly pale. Extremities: No cyanosis, clubbing, or edema. Neurological: Alert. Cranial nerves 2-12 are grossly intact. Psychiatric: Pleasant and cooperative with normal mood and affect. Judgment and insight intact. Objective Data Vital Signs Vital Signs: Vital Signs - 24 hr 02/19/23 10:45 02/19/23 11:01 02/19/23 11:00 Temperature 98.5 F 97.9 F 97.9 F Pulse Rate 86 87 87 Respiratory Rate 20 20 20 Blood Pressure 148/53 H 139/65 139/65 Pulse Oximetry 99 98 98 Oxygen Delivery Room Air 02/19/23 11:44 02/19/23 11:54 02/19/23 12:04 Temperature Pulse Rate 86 85 82 Respiratory Rate 25 H 24 H 17 Blood Pressure 123/53 L 146/53 H 145/57 H Pulse Oximetry 98 96 95 Oxygen Delivery Room Air Room Air Room Air 02/19/23 12:00 02/19/23 13:00 02/19/23 12:00 Temperature 98.0 F 98.4 F 98.0 F Pulse Rate 80 82 80 Respiratory Rate 20 16 20 Blood Pressure 154/59 H 147/56 H 154/59 H Pulse Oximetry 99 100 99 Oxygen Delivery 02/19/23 13:00 02/19/23 14:00 02/19/23 16:00 Temperature 98.4 F 98.8 F 97.7 F Pulse Rate 82 86 80 Respiratory Rate 16 16 16 Blood Pressure 147/56 H 149/61 H 148/59 H Pulse Oximetry 100 99 99 Oxygen Delivery 02/19/23 14:00 02/19/23 16:00 02/19/23 18:00 Temperature Pulse Rate 87 82 80 Respiratory Rate Blood Pressure Pulse Oximetry Oxygen Delivery 02/19/23 12:30 02/19/23 16:00 02/19/23 20:00 Temperature 98.9 F Pulse Rate 92 Respiratory Rate 16 Blood Pressure 150/47 H Pulse Oximetry 94 Oxygen Delivery Room Air Room Air 02/19/23 20:00 02/19/23 20:00 02/19/23 22:00 Temperature Pulse Rate 82 96 Respiratory Rate Blood Pressure Pulse Oximetry Oxygen Delivery Room Air 02/20/23 00:00 02/20/23 00:00 02/20/23 01:58
[2023-02-20 11:24] LABS: Glucose Point of Care 331 mg/dl (65-105)
[2023-02-20] MEDS: INSULIN GLARGINE (*BKC) 100 UNITS/ML 26 UNITS SUB-Q (12:20)
[2023-02-20 16:27] LABS: Glucose Point of Care 285 mg/dl (65-105)
[2023-02-20] MEDS: ACETAMINOPHEN 325 MG TABLET 650 MG PO (17:18)
[2023-02-20 18:17] LABS: Hematocrit 23.7 % (42.0-52.0); Mean Corpuscular HGB Conc 33.8 g/dl (32-36); Mean Corpuscular Volume 91.9 fl (80-100); Mean Platelet Volume 10.7 fl (7.4-10.4); Platelet Count Result 65 k/mm3 (150-375); Red Blood Count 2.58 M/mm3 (4.6-6.20); Red Cell Distribution Width 17.6 % (11.5-14.5); White Blood Count 2.9 K/mm3 (4.5-10.0)
[2023-02-20 18:36] LABS: Alanine Aminotransferase 26 U/L (6-50); Alkaline Phosphatase 71 U/L (38-126); Anion Gap 6 mmol/L (8-16); Aspartate Amino Transferase 31 U/L (17-59); Bilirubin,Total 1.5 mg/dL (0.2-1.3); Blood Urea Nitrogen 18 mg/dL (9-20); Calcium 7.7 mg/dL (8.4-10.2); Carbon Dioxide 23 mmol/L (22-30); Chloride 102 mmol/L (98-107); Estimated CRCL calculation 123 ml/min; Estimated Glomerular Filt Rate > 60; Glucose 294 mg/dL (65-110); Potassium 3.1 mmol/L (3.4-5.0); Sodium 131 mmol/L (137-145)
[2023-02-20 20:28] LABS: Glucose Point of Care 378 mg/dl (65-105)
[2023-02-21] VITALS (17 sets, daily range): BP systolic 107–126; BP diastolic 49–64; PULSE 61–79; RESP 16–20; TEMP 36.4–36.8; O2SAT 98–100
[2023-02-21 06:43] LABS: Hematocrit 23.5 % (42.0-52.0); Hemoglobin 8.2 g/dL (14.0-18.0); Immature Platelet Fraction Pct 5.8 % (0.9-11.2); Mean Corpuscular HGB Conc 34.9 g/dl (32-36); Mean Corpuscular Hemoglobin 31.3 pg (26-34); Mean Corpuscular Volume 89.7 fl (80-100); Mean Platelet Volume 10.7 fl (7.4-10.4); Platelet Count Result 73 k/mm3 (150-375); Red Blood Count 2.62 M/mm3 (4.6-6.20); Red Cell Distribution Width 17.8 % (11.5-14.5); White Blood Count 2.6 K/mm3 (4.5-10.0)
[2023-02-21 06:58] LABS: Alanine Aminotransferase 24 U/L (6-50); Albumin Level 2.8 g/dL (3.5-5.1); Alkaline Phosphatase 65 U/L (38-126); Anion Gap 7 mmol/L (8-16); Aspartate Amino Transferase 33 U/L (17-59); Bilirubin,Total 1.6 mg/dL (0.2-1.3); Blood Urea Nitrogen 16 mg/dL (9-20); Calcium 7.2 mg/dL (8.4-10.2); Carbon Dioxide 23 mmol/L (22-30); Chloride 101 mmol/L (98-107); Estimated CRCL calculation 123 ml/min; Estimated Glomerular Filt Rate > 60; Glucose 228 mg/dL (65-110); Potassium 3.1 mmol/L (3.4-5.0); Sodium 131 mmol/L (137-145)
[2023-02-21 07:59] LABS: Glucose Point of Care 229 mg/dl (65-105)
[2023-02-21] MEDS: PANTOPRAZOLE SODIUM IV 40 MG VIAL IV PUSH ×2 (09:16→20:24)
[2023-02-21] MEDS: INSULIN ASPART (*BKC) 100 UNITS/ML SUB-Q ×4 (09:17→17:04)
[2023-02-21] MEDS: INSULIN GLARGINE (*BKC) 100 UNITS/ML 26 UNITS SUB-Q (09:18)
--- NOTE | 2023-02-21 10:58 | WPDGIPROGNO ---
Progress Note: A&P Assessment and Plan (1) Esophageal varices: Code(s): I85.00 - Esophageal varices without bleeding Status: Acute Assessment and Plan: Patient with esophageal varices evident at the time of endoscopy Wednesday. These were banded. Patient now on octreotide. Plan to advance to a soft diet which patient is tolerating well. Would decrease octreotide by 1/2 today. Discontinue in the morning. If no additional bleeding or problems patient may be discharged in the morning. 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 He apparently lives in follows with doctors in [place]. Follow-up EGD is anticipated in 1-2 months for additional banding. Patient will be started on nonspecific beta-valorie as prophylaxis for additional GI bleeding. Inderal will be started today. (2) Alcoholic cirrhosis: Code(s): K70.30 - Alcoholic cirrhosis of liver without ascites Status: Acute Assessment and Plan: Patient with cirrhosis on the basis of alcohol use. Continued supportive care suggested. (3) Type 2 diabetes mellitus: Code(s): E11.9 - Type 2 diabetes mellitus without complications Status: Acute Subjective Date/time seen: 02/21/23 10:58 Interval history: Patient alert comfortable at present. tolerating diet. Denies abdominal pain. No lightheadedness. No signs for additional bleeding. Review of Systems Review of Systems: Review of systems noncontributory. Exam Narrative: Physical exam reveals patient be alert. Vital signs stable. HEENT exam is unremarkable. Patient anicteric. Lungs are clear to auscultation and percussion. Heart is without murmur or extra sounds. Abdomen bowel sounds present soft nontender with no organomegaly. Objective Data Vital Signs Vital Signs: Vital Signs - 24 hr 02/20/23 12:54 02/20/23 12:00 02/20/23 14:00 Temperature 98.0 F Pulse Rate 76 73 70 Respiratory Rate 20 Blood Pressure 132/52 L Pulse Oximetry 100 Oxygen Delivery 02/20/23 16:00 02/20/23 12:00 02/20/23 16:00 Temperature Pulse Rate 71 Respiratory Rate Blood Pressure Pulse Oximetry Oxygen Delivery Room Air Room Air 02/20/23 16:36 02/20/23 18:00 02/20/23 20:00 Temperature 97.8 F 99.0 F Pulse Rate 73 78 77 Respiratory Rate 20 20 Blood Pressure 133/63 134/59 L Pulse Oximetry 97 97 Oxygen Delivery 02/20/23 23:06 02/20/23 20:00 02/21/23 00:00 Temperature 98.9 F Pulse Rate 75 Respiratory Rate 20 Blood Pressure 129/56 L Pulse Oximetry 100 Oxygen Delivery Room Air Room Air 02/21/23 04:00 02/20/23 20:00 02/20/23 22:00 Temperature 98.2 F Pulse Rate 70 80 78 Respiratory Rate 20 Blood Pressure 125/58 L Pulse Oximetry 100 Oxygen Delivery 02/21/23 00:00 02/21/23 02:00 02/21/23 04:00 Temperature Pulse Rate 77 69 73 Respiratory Rate Blood Pressure Pulse Oximetry Oxygen Delivery 02/21/23 04:00 02/21/23 06:00 02/21/23 08:42 Temperature 97.8 F Pulse Rate 70 70 Respiratory Rate 16 Blood Pressure 124/49 L Pulse Oximetry 98 Oxygen Delivery Room Air Intake/Output Intake/Output: Intake & Output 02/18/23 02/19/23 02/20/23 02/21/23 23:59 23:59 23:59 23:59 Intake Total 150 2440 3365 340 Output Total 1850 1200 450 Balance 539 165 8390 -110 Meds/Results Medications: Active Medications Generic Name Dose Route Start Last Admin Trade Name Freq PRN Reason Stop Dose Admin Acetaminophen 650 mg 02/18/23 20:04 02/20/23 17:18 Acetaminophen 325 Mg Tablet PO 650 mg Q6H PRN Administration Mild Pain (1-3) or Fever Dextrose 12.5 gm 02/18/23 20:04 Dextrose 50% 25 Gm/50 Ml Syringe IV PUSH PRN PRN Hypoglycemia Protocol Glucagon 1 mg 02/18/23 20:04 Glucagon For Inj 1 Mg Vial IM PRN PRN Hypoglycemia Protocol Glucose 15 gm 02/18/23 20:04 Glucose Oral Gel 15 Gm
[2023-02-21 11:50] LABS: Glucose Point of Care 389 mg/dl (65-105)
--- NOTE | 2023-02-21 14:43 | PM.IMPN ---
Progress Note: A&P Assessment and Plan (1) Upper GI bleed: Code(s): K92.2 - Gastrointestinal hemorrhage, unspecified Status: Acute Assessment and Plan: Patient has signs of upper GI bleeding including hematemesis and melena as per HPI. Continue octreotide 3 days. 02/21 octreotide reduced to 1/2 dose Monitor H/H If stable 02/22 d/c octreotide and discharge (2) Anemia: Code(s): D64.9 - Anemia, unspecified Status: Acute Assessment and Plan: with pancytopenia due to GI bleed, cirrhosis, splenic sequestration, marrow suppression F/U CBC (3) Type 2 diabetes mellitus with hyperglycemia: Code(s): E11.65 - Type 2 diabetes mellitus with hyperglycemia Status: Acute Assessment and Plan: FBS 02/20 316 so added Lantus 26 U 02/21 FBS 229, added Novolog 5 U TID AC, continued Lantus 26 U daily and SSI (4) Hyperbilirubinemia: Code(s): E80.6 - Other disorders of bilirubin metabolism Status: Acute Assessment and Plan: Bilirubin is 3.0, the remainder of his LFTs are within normal limits. Likely due to chronic liver disease. (5) Alcoholic cirrhosis: Code(s): K70.30 - Alcoholic cirrhosis of liver without ascites Status: Acute Assessment and Plan: Patient has abstained from alcohol since his diagnosis in February 2022. (6) Gastroesophageal reflux disease: Code(s): K21.9 - Gastro-esophageal reflux disease without esophagitis Status: Acute Assessment and Plan: Currently on pantoprazole Plan TSH was NL. NOT hypothyroid Subjective Date/time seen: 02/21/23 14:43 Interval history: Tolerated diet. Soft foods. Had dark bowel movement yesterday. No bright red blood. Not liquid her sticky. Very formed. No abdominal pain nausea vomiting. Denied chest pain or shortness of breath focal weakness or numbness or dizziness. Lives in [place]. Has means to get home other than driving himself once he is discharged. His father is in [place] with him. As a primary doctor in [place] and is willing to make an appointment to see him next week. Last alcoholic beverage was over 1 year ago. Review of Systems Review of Systems: Twelve systems were reviewed and are negative except for as per HPI. All systems reviewed & are unremarkable except as noted in HPI and below Exam Narrative: General: Middle-aged gentleman in NAD HEENT:. Sclera anicteric. Tacky mucous membranes. Neck: No JVD Respiratory: Lungs are clear to auscultation bilaterally. Cardiovascular: Regular rate and rhythm with S1-S2. Gastrointestinal: Abdomen is soft, nontender, and nondistended with positive bowel sounds. No guarding or rebound tenderness. Skin: Warm and dry. Slightly pale. Extremities: No cyanosis, clubbing, or edema. Neurological: Alert. Cranial nerves 2-12 are grossly intact. Psychiatric: Pleasant and cooperative with normal mood and affect. Judgment and insight intact. Objective Data Vital Signs Vital Signs: Vital Signs - 24 hr 02/20/23 16:00 02/20/23 16:00 02/20/23 16:36 Temperature 97.8 F Pulse Rate 71 73 Respiratory Rate 20 Blood Pressure 133/63 Pulse Oximetry 97 Oxygen Delivery Room Air 02/20/23 18:00 02/20/23 20:00 02/20/23 23:06 Temperature 99.0 F 98.9 F Pulse Rate 78 77 75 Respiratory Rate 20 20 Blood Pressure 134/59 L 129/56 L Pulse Oximetry 97 100 Oxygen Delivery 02/20/23 20:00 02/21/23 00:00 02/21/23 04:00 Temperature 98.2 F Pulse Rate 70 Respiratory Rate 20 Blood Pressure 125/58 L Pulse Oximetry 100 Oxygen Delivery Room Air Room Air 02/20/23 20:00 02/20/23 22:00 02/21/23 00:00 Temperature Pulse Rate 80 78 77 Respiratory Rate Blood Pressure Pulse Oximetry Oxygen Delivery 02/21/23 02:00 02/21/23 04:00 02/21/23 04:00 Temperature Pulse Rate 69 73 Respiratory Rate Blood Pressure Pulse Oximetry Oxygen Delivery Room A
[2023-02-21 16:48] LABS: Glucose Point of Care 236 mg/dl (65-105)
[2023-02-21] MEDS: POTASSIUM CHLORIDE 20 MEQ TABLET 40 MEQ PO (16:55)
[2023-02-21 20:19] LABS: Glucose Point of Care 287 mg/dl (65-105)
[2023-02-21] MEDS: PROPRANOLOL HCL 20 MG TABLET PO (20:23)
[2023-02-22] VITALS (9 sets, daily range): BP systolic 108–109; BP diastolic 54–60; PULSE 60–67; RESP 16–20; TEMP 36–36.2; O2SAT 99–100
[2023-02-22 07:02] LABS: Hematocrit 23.9 % (42.0-52.0); Immature Platelet Fraction Pct 5.8 % (0.9-11.2); Mean Corpuscular HGB Conc 33.5 g/dl (32-36); Mean Corpuscular Hemoglobin 30.2 pg (26-34); Mean Corpuscular Volume 90.2 fl (80-100); Mean Platelet Volume 10.2 fl (7.4-10.4); Platelet Count Result 68 k/mm3 (150-375); Red Blood Count 2.65 M/mm3 (4.6-6.20); White Blood Count 2.9 K/mm3 (4.5-10.0)
[2023-02-22 07:13] LABS: Alanine Aminotransferase 23 U/L (6-50); Albumin Level 2.7 g/dL (3.5-5.1); Alkaline Phosphatase 67 U/L (38-126); Anion Gap 0 mmol/L (8-16); Aspartate Amino Transferase 31 U/L (17-59); Bilirubin,Total 1.4 mg/dL (0.2-1.3); Blood Urea Nitrogen 11 mg/dL (9-20); Calcium 7.5 mg/dL (8.4-10.2); Carbon Dioxide 27 mmol/L (22-30); Chloride 106 mmol/L (98-107); Estimated CRCL calculation 123 ml/min; Estimated Glomerular Filt Rate > 60; Glucose 158 mg/dL (65-110); Potassium 3.6 mmol/L (3.4-5.0); Sodium 133 mmol/L (137-145)
[2023-02-22 08:14] LABS: Glucose Point of Care 157 mg/dl (65-105)
[2023-02-22] MEDS: INSULIN ASPART (*BKC) 100 UNITS/ML SUB-Q (08:42)
[2023-02-22] MEDS: INSULIN GLARGINE (*BKC) 100 UNITS/ML 26 UNITS SUB-Q (08:45)
[2023-02-22] MEDS: PANTOPRAZOLE SODIUM IV 40 MG VIAL IV PUSH (08:47)
[2023-02-22] MEDS: PROPRANOLOL HCL 20 MG TABLET PO (08:48)
--- NOTE | 2023-02-22 10:33 | PM.DS ---
DS: Admitting Diagnosis Discharge Date 02/22/2023 Admitting Diagnosis GI bleed DS: Discharge Diagnosis Discharge Diagnosis (1) Esophageal varices: Code(s): I85.00 - Esophageal varices without bleeding Status: Acute DS: Summary Hospital Course Hospital Course: This is a very pleasant 57-year-old male with hypertension, dyslipidemia, type 2 diabetes mellitus, and cirrhosis with history of esophageal varices and variceal bleeding who presented to the emergency department via private vehicle from home for evaluation of coffee-ground emesis.? GI was consulted. Patient was started on IV Protonix. Patient underwent EGD which showed esophageal varices.? These were banded.? Patient started on octreotide.? no additional bleeding or problems. patient is being discharged. 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 He apparently follows with doctors in [place].? Follow-up EGD is anticipated in 1-2 months for additional banding.? Patient will be started on nonspecific beta-valorie -Inderal- as prophylaxis for additional GI bleeding.? Time Spent with Patient Time attestation: Total time spent providing and/or coordinating discharge services: Exam Const: General: cooperative and comfortable Orientation/consciousness: patient oriented x3 HENMT: Head: normal to inspection Mouth: Yes Normal oral and palatal mucosa present Eyes: General: appearance normal, both eyes and all related structures Resp: Effort & Inspection: normal respiratory effort Auscultation: clear to auscultation bilaterally Cardio: Rate: regular rate Rhythm: regular rhythm Heart sounds: S1 normal heart sound present and S2 normal heart sound present GI: GI Palp: Yes Soft to palpation Auscultation: normal bowel sounds Skin: General skin exam: normal color and no rashes or lesions noted Neuro: General: patient oriented x3, no focal motor deficits and CN's II-XI intact bilaterally Speech: normal speech Extrem: General: full ROM Psych: Appearance: grossly normal DS: Data Data Completed and Pending Labs on day of discharge: Labs from last 24 hours 02/22/23 02/22/23 02/21/23 07:40 06:54 19:36 WBC 2.9 L RBC 2.65 L Hgb 8.0 L Hct 23.9 L MCV 90.2 MCH 30.2 MCHC 33.5 RDW 18.0 H Plt Count 68 L MPV 10.2 % Immature Plt Fraction 5.8 Sodium 133 L Potassium 3.6 Chloride 106 Carbon Dioxide 27 Anion Gap 0 L BUN 11 D Creatinine 0.70 Estim Creat Clear Calc 123 Estimated GFR > 60 Glucose 158 H POC Capillary Glucose 157 H 287 H Calcium 7.5 L Total Bilirubin 1.4 H AST 31 ALT 23 Alkaline Phosphatase 67 Total Protein 5.0 L Albumin 2.7 L 02/21/23 02/21/23 16:22 11:40 WBC RBC Hgb Hct MCV MCH MCHC RDW Plt Count MPV % Immature Plt Fraction Sodium Potassium Chloride Carbon Dioxide Anion Gap BUN Creatinine Estim Creat Clear Calc Estimated GFR Glucose POC Capillary Glucose 236 H 389 H Calcium Total Bilirubin AST ALT Alkaline Phosphatase Total Protein Albumin Discharge Plan Discharge Consulting providers: Vasquez Clayton Discharging Clinician: Andrea Manzo Anticipated Discharge Date/Time: 02/22/23 10:31 Patient Disposition: Home, Self-Care Activity: no preference Diet: regular Patient Instructions: Antibiotic Form Stand Alone Forms: General Discharge Information Follow-up/Referrals: PHYSICIAN NOT ON STAFF,NONSTAFF [Primary Care Provider] - Discharge Medications: New propranolol 20 mg Tablet 20 mg PO Q12HR Qty: 60 0RF pantoprazole 40 mg Tablet,Delayed Release (Dr/Ec) 40 mg PO Q12HR Qty: 60 0RF Continued ezetimibe 10 mg tablet 10 mg DAILY escitalopram oxalate 20 mg tablet 20 tablet PO DAILY Date of admission: 02/19/23 12:56 Primary Care Provider: PHYSICIAN NOT ON STAFF,
== END 2023-02-22 12:10 | disposition home or self-care (01) | DRG 432 ==
LOC: ANHED 14:24 → ANHIMU 16:30
PROVIDERS: Emergency Medicine; Internal Medicine; Internal Medicine Gastroenterology; Physician Assistant; Admitting Provider Internal Medicine; Emergency Provider Emergency Medicine; Visit Provider Hospitalist
PROC: 0DJ08ZZ Inspection of Upper Intestinal Tract, Via Natural or Artificial Opening Endoscopic (ICD-10-PCS; CPT 43235; principal; 2023-02-19 14:15)
DX: K70.30 Alcoholic cirrhosis of liver without ascites (principal); I85.11 Secondary esophageal varices with bleeding; D62 Acute posthemorrhagic anemia; D61.818 Other pancytopenia; I10 Essential (primary) hypertension; E78.5 Hyperlipidemia, unspecified; K29.70 Gastritis, unspecified, without bleeding; E11.65 Type 2 diabetes mellitus with hyperglycemia; Z79.899 Other long term (current) drug therapy
CPT/HCPCS: 36415; 36430; 80048; 80053; 82948; 83036; 83735; 84443; 85014; 85018; 85025; 85027; 85055; 85610; 85730; 86850; 86900; 86901; 86923; 96365; 96366; 96375; 99285; A9270; C9113; G0378; J0696; J1815; J2354; J2704; J7040; J7050; J7120; P9016